=== PATIENT | male | born 1930 | race Caucasian/White ===

== ENCOUNTER → 2018-01-08 | Outpatient (CLI) | payer MEDICARE, BC ==
--- NOTE | 2018-01-09 16:03 | MR ---
EXAMINATION TYPE: MR brain wo con DATE OF EXAM: 01/08/2018 COMPARISON: Correlation acoustic MRI 04/10/2013 HISTORY: 87-year-old male orthostatic tremor, Dizziness TECHNIQUE: Multiplanar, multisequence images of the brain and brainstem were acquired without IV con trast. Diffusion weighted imaging is performed. FINDINGS: No evidence for acute infarction, hemorrhage, mass, mass effect, midline shift, herniation, effacemen t of basal cisterns, or extra-axial fluid collection. There is mild hydrocephalus with moderate generalized supratentorial volume loss. Major intracranial flow voids are intact. Dominant left vertebral artery T2/FLAIR weighted sequences show prominent perivascular spaces in the bilateral basal ganglia and mod erate scattered burden of white white matter foci in the periventricular and deep white matter region s of both cerebral hemispheres that show some interval progression from 2012. Midline structures demonstrate normal morphology. The craniocervical junction is normal. Moderate lobulated mucosal thickening floors of the maxillary sinuses and moderate mucosal thickening in the ethmoid air cells. Mild mucosal thickening left frontal sinus. Globes are intact. IMPRESSION: 1. Moderate generalized atrophy. Mild ventriculomegaly likely secondary to ex vacuo enlargement, che lar to 2012. 2. There is moderate scattered burden of T2 bright white matter change. Findings likely relate to chr onic small vessel ischemic disease, progressed from 2012. 3. No acute intracranial abnormality seen. 4. 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
== END | disposition home or self-care (01) ==
LOC: RADMRIMAIN 12:43
PROVIDERS: ATTEND Internal Medicine
DX: G31.9 Degenerative disease of nervous system, unspecified (principal); R93.0 Abnormal findings on diagnostic imaging of skull and head, not elsewhere classified; G25.2 Other specified forms of tremor
CPT/HCPCS: 70551

== ENCOUNTER 2018-05-14 16:37 | Inpatient (IN) | payer MEDICARE, BC ==
--- NOTE | 2018-05-14 17:01 | ED ---
Chest Pain HPI - General Chief Complaint: Chest Pain Stated Complaint: Chest pain Time Seen by Provider: 05/14/18 16:46 Source: patient, RN notes reviewed Mode of arrival: ambulatory Limitations: no limitations - History of Present Illness Initial Comments: This 88-year-old male who is here with complaints of intermittent left-sided chest pain. 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 No fevers chills nausea vomiting sweats cough or phlegm production no other symptoms or modifying factors other than he has been working out in a swimming pool recently. MD Complaint: chest pain - Related Data Home Medications Medication Instructions Recorded Confirmed Aspirin EC [Ecotrin Low Dose] 81 mg PO HS 05/14/18 05/14/18 Brinzolamide [Azopt 1% Ophth Susp] 1 drop BOTH EYES DAILY 05/14/18 05/14/18 Mesalamine [Asacol Hd] 800 mg PO BID 05/14/18 05/14/18 Vit C/E/Zn/Coppr/Lutein/Zeaxan 1 cap PO BID 05/14/18 05/14/18 [Preservision Areds 2 Softgel] Vitamin D3(Unknown Dose) 1 tab PO HS 05/14/18 05/14/18 Vitamin E(Unknown Dose) 1 cap PO HS 05/14/18 05/14/18 Allergies Allergy/AdvReac Type Severity Reaction Status Date / Time Sulfa (Sulfonamide Allergy Rash/Hives Verified 05/14/18 17:02 Antibiotics) Review of Systems ROS Statement: Those systems with pertinent positive or pertinent negative responses have been documented in the HPI. ROS Other: All systems not noted in ROS Statement are negative. EKG Findings - EKG Results: EKG: interpreted by ERMD, sinus rhythm (Sinus rhythm with first-degree block rate was 65. Interval 250 QRS 92 QT since QTC 34/399 evidence of left exodeviation occasional PAC) Past Medical History Past Medical History: No Reported History History of Any Multi-Drug Resistant Organisms: None Reported Past Surgical History: Cholecystectomy Past Psychological History: No Psychological Hx Reported Smoking Status: Former smoker Past Alcohol Use History: None Reported Past Drug Use History: None Reported General Exam - General Exam Comments Initial Comments: This is a well-developed well-nourished awake alert oriented times 3 male Limitations: no limitations General appearance: alert, in no apparent distress Head exam: Present: atraumatic, normocephalic, normal inspection Eye exam: Present: normal appearance, PERRL, EOMI. Absent: scleral icterus, conjunctival injection, periorbital swelling ENT exam: Present: normal exam, mucous membranes moist Neck exam: Present: normal inspection. Absent: tenderness, meningismus, lymphadenopathy Respiratory exam: Present: normal lung sounds bilaterally. Absent: respiratory distress, wheezes, rales, rhonchi, stridor Cardiovascular Exam: Present: regular rate, normal rhythm, normal heart sounds. Absent: systolic murmur, diastolic murmur, rubs, gallop, clicks GI/Abdominal exam: Present: soft, normal bowel sounds. Absent: distended, tenderness, guarding, rebound, rigid Extremities exam: Present: normal inspection, full ROM, normal capillary refill. Absent: tenderness, pedal edema, joint swelling, calf tenderness Back exam: Present: normal inspection Neurological exam: Present: alert, oriented X3, CN II-XII intact Psychiatric exam: Present: normal affect, normal mood Skin exam: Present: warm, dry, intact, normal color. Absent: rash Course Vital Signs 05/14/18 05/14/18 05/14/18 16:45 17:31 17:32 Temperature 98.2 F 97.9 F Pulse Rate 64 64 Pulse Rate [ 64 [employer] ] Respiratory 18 18 Rate Blood Pressure 144/77 165/79 O2 Sat by Pulse 97 98 Oximetry - Reevaluation(s) Reevaluation #1: 05/14/18 18:45 Reevaluation patient reveals no recurrence of pain. Chest Pain MDM - MDM Review the x-ray is unremarkable. I did discuss findings the patient several family members or present patient is pain-free at this time he will be admitted for evaluation by cardiology at [facility] discuss case Dr. Garcia who is covering for Dr. Rodriguez Disposition Clinical Impression: Chest pain, Unstable angina pectoris Disposition: ADMITTED IP TO THIS [facility] Condition: Stable Referrals: Levon Rodriguez MD [Primary Care Provider] - 1-2 days
[2018-05-14 17:13] LABS: Basophils % (A) 0 %; Eosinophils # (A) 0.5 k/uL (0-0.7); Eosinophils % (A) 7 %; HCT 38.7 % (39.0-53.0); HGB 13.2 gm/dL (13.0-17.5); Lymphocytes # (A) 1.6 k/uL (1.0-4.8); Lymphocytes % (A) 22 %; MCH 32.5 pg (25.0-35.0); MCHC 34.1 g/dL (31.0-37.0); MCV 95.5 fL (80.0-100.0); Mean Platelet Volume 6.8; Monocytes # (A) 0.5 k/uL (0-1.0); Monocytes % (A) 7 %; Neutrophils # (A) 4.4 k/uL (1.3-7.7); Neutrophils % (A) 62 %; Platelet Count 173 k/uL (150-450); RBC 4.06 m/uL (4.30-5.90); RDW 13.3 % (11.5-15.5); WBC 7.2 k/uL (3.8-10.6)
[2018-05-14 17:23] LABS: Albumin 4.1 g/dL (3.5-5.0); Magnesium 2.2 mg/dL (1.6-2.3); Potassium 4.3 mmol/L (3.5-5.1); Total Bilirubin 0.4 mg/dL (0.2-1.3); Total Protein 6.9 g/dL (6.3-8.2)
--- NOTE | 2018-05-14 17:47 | XR ---
EXAMINATION: XR chest 2V DATE AND TIME: 05/14/2018 5:16 PM CLINICAL INDICATION: Chest Pain TECHNIQUE: PA and lateral COMPARISON: 01/27/2014 FINDINGS: The lungs are clear. The pleural spaces are negative. The cardiac silhouette is mildly enlarged, unchanged. Thoracic aorta is tortuous, unchanged. The skeletal structures and soft tissues are negative for acute findings. IMPRESSION: NO ACUTE PROCESS.
[2018-05-14 17:48] LABS: Creatine Kinase MB 3.1 ng/mL (0.0-2.4); Troponin I 0.014 ng/mL (0.000-0.034)
[2018-05-14 17:53] LABS: D-Dimer 0.57 mg/L FEU (<0.60); INR 1.2 (<1.2); Prothrombin Time 11.6 sec (9.0-12.0)
[2018-05-14] MEDS ORDERED: HEPARIN SODIUM,PORCINE 5,000 UNIT/ML 1 ML VIAL IV ONE (18:46)
[2018-05-14] MEDS ORDERED: NITROGLYCERIN SL TABS 0.4 MG TAB SUBLINGUAL PRN (18:46)
[2018-05-14] MEDS ORDERED: ASPIRIN 81 MG PO STA (18:46)
[2018-05-14] MEDS ORDERED: HEPARIN SOD,PORK IN 0.45% NACL 25,000 UNIT in 0.45% NACL 1 500ML.BAG IV SCH (19:00)
[2018-05-14] MEDS ORDERED: FUROSEMIDE 10 MG/ML 2 ML VIAL IV SCH (20:30)
[2018-05-14] MEDS ORDERED: VITAMIN D3 PO SCH (21:00)
[2018-05-14] MEDS ORDERED: VITAMIN E PO SCH (21:00)
[2018-05-14] MEDS ORDERED: ASPIRIN 81 MG PO SCH (21:00)
[2018-05-14] MEDS ORDERED: HEPARIN SODIUM,PORCINE 5,000 UNIT/ML 1 ML VIAL IV PRN (21:29)
[2018-05-14] MEDS: BALSALAZIDE DISODIUM 750 MG CAPSULE PO SCH (21:44)
[2018-05-14] MEDS: VIT A,C & E-LUTEIN-MINERALS 1 EACH TAB PO SCH (21:44)
--- NOTE | 2018-05-14 21:44 | HP ---
HISTORY AND PHYSICAL DATE OF SERVICE: 05/14/[address] Rodriguez and admitted to the hospital through the emergency room. CHIEF COMPLAINT: Tightness of the chest, recurrent and worsened after he fell today that was on the left- sided. He did not feel any heartburn or any association with the chest pain except goes to the neck. HISTORY OF PRESENT ILLNESS: Mr. Guillaume Lay is 88 years old. The PCP Dr. Rodriguez, the attending. The patient is 88 years old white male, , and he has been with that is still working and he has experienced chest discomfort in the form of tightness within the last 2 weeks and pressure-like and goes to upper neck. No radiation to the right or left arm and with no radiation to the back. It is a pressure. It is not associated with sharp pain. He had denied any nausea or vomiting. Denied any palpitation, felt just tightness. It comes always at the evening time of the day and otherwise he was feeling right and after he had repeatedly these symptoms, he decided to come today because he was afraid that he may have had a heart attack. PAST MEDICAL HISTORY: His past medical history is associated with his bowel could be inflammatory and was treated with the Asacol or the mesalamine. Otherwise, he was on his aspirin and eyedrops and vitamin D. On the family history, he has 3 children, 1 son and 2 daughters. The daughter was with him. He had history in the past of a bleeding ulcer and that was treated and resolved, that is 50 years ago and he had a laparoscopic cholecystectomy. He has a family history of brother older than him 89 and he has no problem. His mother had cancer, of age of 64. Father of age of 58 with stroke and hypertension. HE HAS ALLERGY TO SULFA. He quit smoking 60 years ago. He smoked only for 4 years, less than a pack per day. He is non alcohol intake but former smoker as well as mentioned. REVIEWING OF THE SYSTEMS: Neuropsychiatry was negative. Cardiovascular only the feeling tightness of the chest. Pulmonary: He does not have cough or expectoration. No hemoptysis, hematemesis or melena or hematochezia and GI is no heartburn. No GERD and no dyspepsia. No melena or hematochezia or hematemesis. : No dysuria or hematuria and musculoskeletal was normal and he is still working and he is ambulatory. PHYSICAL EXAMINATION: The patient is conscious, alert, oriented, and his vital signs indicating that on admission and in the hospital, his temperature is 97.4 orally and pulse 62, respiratory rate 16, blood pressure 166/80 with a mean 108. His pulse ox was 99. HEENT: The head was normocephalic, atraumatic. The pupil was equal, reactive. Conjunctivae was pink. Sclerae was nonicteric. Oropharynx was negative. Natural teeth. Uvula midline. Neck was supple. No JVD. No thyromegaly. No lymphadenopathy. Trachea midline. The chest was to auscultation and percussion. Questionable lower bases rales and otherwise no problem. He is not short of breath. The heart PMI in the 5th intercostal space outside midclavicular line with the underlying systolic murmur on the apex radiated to the base of the heart on the aortic area with the underlying mitral stenosis. The abdomen is soft, nontender, positive bowel sounds. Obese and no palpable masses. Extremities: He had 1+ on the ankle and the dorsum of the feet and also the shaft, 1 to 2+ edema. However, he did not recognize that until examined. He has also onychomycosis of the toenail and also superficial varicosities of the ankle. LABORATORY DATA: The current laboratories has been present. He has a white count of 7.2 with hemoglobin 13.2 and hematocrit 38.7. His platelet count is 173 and his protime and INR was normal and D-dimer was also normal as well as a PTT. His chemistry is sodium 138, potassium 4.3, and his BUN is 23 and creatinine 1.26 with the estimated glomerular filtration rate for non- 51. With the underlying probably chronic kidney disease stage 3. His liver enzymes normal. Magnesium is 2.2 and his troponin was 0.014 and protein 6.9, albumin 4.1. The last serum lipase was normal 106. ASSESSMENT: 1. Chest pain. 2. Rule out unstable angina with recurrence. 3. Edema of the lower extremities. 4. History of aortic stenosis and the last echocardiogram was done in 04/06/2015 and at that time showed that he had ejection fraction 60-65 with a normal ventricular systolic function, but he has aortic valve is trileaflet and aortic stenosis as well and he had mitral regurg as well. With this finding and this changes, the patient on observation status. Consultation with cardiology Dr. Dior and for further treatment troponin as well as echocardiogram was ordered and monitoring the patient with telemetry as well. His EKG at the time of the admission did not indicate sinus rhythm with first-degree AV block and left axis deviation and a premature atrial complex. No ST-segment elevation or depression, and the troponin was normal and with the current symptoms, the patient on heparin protocol is admitted on observation status until seen by the Cardiology and meanwhile, echocardiogram will be ordered for tomorrow and also restarting Lasix 20 mg IV push once daily. MMODL / IJN: [id number] /
[2018-05-15 00:28] LABS: Creatine Kinase 118 U/L (55-170)
[2018-05-15 00:42] LABS: Creatine Kinase MB 2.6 ng/mL (0.0-2.4); Troponin I <0.012 ng/mL (0.000-0.034)
[2018-05-15 05:36] LABS: Basophils % (A) 1 %; Eosinophils # (A) 0.4 k/uL (0-0.7); Eosinophils % (A) 6 %; HCT 37.9 % (39.0-53.0); HGB 12.4 gm/dL (13.0-17.5); Lymphocytes # (A) 1.5 k/uL (1.0-4.8); Lymphocytes % (A) 22 %; MCH 31.8 pg (25.0-35.0); MCHC 32.6 g/dL (31.0-37.0); MCV 97.7 fL (80.0-100.0); Mean Platelet Volume 6.4; Monocytes # (A) 0.6 k/uL (0-1.0); Monocytes % (A) 8 %; Neutrophils % (A) 61 %; Platelet Count 150 k/uL (150-450); RBC 3.89 m/uL (4.30-5.90); RDW 13.3 % (11.5-15.5); WBC 6.6 k/uL (3.8-10.6)
[2018-05-15 06:06] LABS: Creatine Kinase 104 U/L (55-170)
[2018-05-15 06:18] LABS: Calcium 8.8 mg/dL (8.4-10.2)
[2018-05-15 06:19] LABS: Creatine Kinase MB 2.4 ng/mL (0.0-2.4); Troponin I <0.012 ng/mL (0.000-0.034)
[2018-05-15] MEDS ORDERED: ASPIRIN 325 MG TAB PO SCH (09:00)
[2018-05-15] MEDS ORDERED: REGADENOSON 0.4 MG/5 ML SYRINGE IV ONE (09:31)
[2018-05-15] MEDS ORDERED: CAFFEINE CITRATE 60 MG/3 ML VIAL IV PRN (09:31)
--- NOTE | 2018-05-15 09:55 | P.CRDCN ---
History of Present Illness History of present illness: Mr. Lay is a pleasant 88-year-old male past medical history significant for gastroesophageal reflux disease. He denies history of coronary artery disease and has followed with a advertising analyst, Dr. Harrington out of [facility] in the past. He states he retired last year and hasn't seen anyone else since. We have been asked to see him in consultation for chest pain. He states for the last few weeks has been feeling a discomfort in the anterior chest. Described as a pressure heavy sensation with no radiation to the arm, back, neck or jaw. The discomfort starts in the evening and feels better when he presses on his chest with both hands. Denies associated shortness of breath, dizziness, palpitations, nausea, vomiting or diaphoresis. The pain is present when he goes to sleep and gone when he wakes up. No specific aggravating factor other than the fact that it only comes at night. He states he is quite active, exercises regularly and swims as well. He denies ever having this discomfort with exercise or exertion. EKG reveals first degree AV block with no acute ST or T-wave abnormalities. Chest xray negative for an acute cardiopulmonary process. Laboratory data reviewed, laboratory data reviewed, hemoglobin 12.4, platelets 150, d-dimer 0.57, sodium 139, potassium 4.0, creatinine 1.26, cardiac enzymes negative 3, LDL 113, and he proBNP 377. He takes no daily cardiac medications. Most recent echocardiogram obtained 2014 revealed preserved left ventricular systolic function with ejection fraction 60-65% aortic stenosis with a mean gradient across the valve of 8.72 mmHg. Review of Systems At the time of my exam: CONSTITUTIONAL: Denies fever. Denies chills. EYES: Denies blurred vision. Denies vision changes. Denies eye pain. EARS, NOSE, MOUTH & THROAT: Denies headache. Denies sore throat. Denies ear pain. CARDIOVASCULAR: Denies chest pain. Denies shortness of breath. Denies orthopnea. Denies PND. Denies palpitations. RESPIRATORY: Denies cough. GASTROINTESTINAL: Denies abdominal pain. Denies diarrhea. Denies constipation. Denies nausea. Denies vomiting. MUSCULOSKELETAL: Denies myalgias. INTEGUMENTARY: Denies pruitis. Denies rash. NEUROLOGIC: Denies numbness. Denies tingling. Denies weakness. PSYCHIATRIC: Denies anxiety. Denies depression. ENDOCRINE: Denies fatigue. Denies weight change. Denies polydipsia. Denies polyurina. GENITOURINARY: Denies burning, hematuria or urgency with micturation. HEMATOLOGIC: Denies history of anemia. Denies bleeding. 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 pt stated he uses eye drops to prevent glaucoma.pt stated he had an pne vaccine 3 or 4 years ago,bid writer unable to verify date at time of this admit. History of Any Multi-Drug Resistant Organisms: None Reported Past Surgical History: Cholecystectomy Additional Past Surgical History / Comment(s): laser eye tx and injections rt eye. colonoscopy, past injections amanda rotator cuffs Past Anesthesia/Blood Transfusion Reactions: No Reported Reaction Smoking Status: Former smoker - Past Family History Father Family Medical History: CVA/TIA Mother Family Medical History: Cancer Additional Family Medical History / Comment(s): liver cancer Medications and Allergies Home Medications Medication Instructions Recorded Confirmed Type Aspirin EC [Ecotrin Low Dose] 81 mg PO HS 05/14/18 05/14/18 History Brinzolamide [Azopt 1% Ophth Susp] 1 drop BOTH EYES DAILY 05/14/18 05/14/18 History Mesalamine [Asacol Hd] 800 mg PO BID 05/14/18 05/14/18 History Vit C/E/Zn/Coppr/Lutein/Zeaxan 1 cap PO BID 05/14/18 05/14/18 History [Preservision Areds 2 Softgel] Vitamin D3(Unknown Dose) 1 tab PO HS 05/14/18 05/14/18 History Vitamin E(Unknown Dose) 1 cap PO HS 05/14/18 05/14/18 History Allergies Allergy/AdvReac Type Severity Reaction Status Date / Time Sulfa (Sulfonamide Allergy Rash/Hives Verified 05/14/18 20:54 Antibiotics) Physical Exam Vitals: Vital Signs Temp Pulse Pulse Pulse Resp BP BP 05/15/18 03:58 98.5 F 67 16 132/71 09/26/18 03:23 16 05/14/18 23:34 16 05/14/18 23:26 97.9 F 63 16 119/67 05/14/18 21:33 16 05/14/18 19:41 97.4 F L 62 16 166/80 05/14/18 19:03 97.7 F 58 L 18 141/75 05/14/18 17:32 64 05/14/18 17:31 97.9 F 64 18 165/79 05/14/18 16:45 98.2 F 64 18 144/77 Pulse Ox 05/15/18 03:58 96 05/15/18 03:23 05/14/18 23:34 05/14/18 23:26 98 05/14/18 21:33 05/14/18 19:41 99 05/14/18 19:03 99 05/14/18 17:32 05/14/18 17:31 98 05/14/18 16:45 97 Intake and Output 05/14/18 05/15/18 05/15/18 22:59 06:59 14:59 Intake Total 40 284.073 Balance 40 284.073 Intake: IV 40 180 Heparin Sod,Pork in 0.45% 40 180 NaCl 25,000 unit In 0.45 % NaCl 1 500ml.bag @ 10 UNITS/KG/HR 19.95 mls/hr IV .Q24H JORDYN Rx#: [id number] Intake, IV Titration 104.073 Amount Heparin Sod,Pork in 0.45% 104.073 NaCl 25,000 unit In 0.45 % NaCl 1 500ml.bag @ 10 UNITS/KG/HR 19.95 mls/hr IV .Q24H JORDYN Rx#: [id number] Other: Voiding Method Toilet Toilet # Voids 5 Weight 99.79 kg Blood pressure 149/79 heart rate 74 afebrile maintaining oxygen saturation on room air GENERAL: This is a 88-year-old male in no apparent distress at the time of my examination. Obese. HEENT: Head is atraumatic, normocephalic. Pupils are equal, round. Sclerae anicteric. Conjunctivae are clear. Mucous membranes of the mouth are moist. Neck is supple. There is no jugular venous distention. No carotid bruit is heard. LUNGS: Clear to auscultation no wheezes, rales or rhonchi. No chest wall tenderness is noted on palpation or with deep breathing. HEART: Regular rate and rhythm with systolic ejection murmur at the base, no rubs or gallops. S1 and S2 heard. ABDOMEN: Soft, nontender. Bowel sounds are heard. No organomegaly noted. EXTREMITIES: No evidence of peripheral pretibial pitting edema and no calf tenderness noted. VASCULAR: Radial and dorsalis pedis pulses palpated, no evidence of clubbing. NEUROLOGIC: Patient is awake, alert and oriented x3. Results 05/15/18 05:16 05/15/18 05:16 Cardiac Enzymes 05/14/18 05/14/18 05/14/18 Range/Units 17:00 17:00 23:58 AST 23 (17-59) U/L CK-MB (CK-2) 3.1 H 2.6 H (0.0-2.4) ng/mL Troponin I 0.014 <0.012 (0.000-0.034) ng/mL 05/15/18 Range/Units 05:16 AST (17-59) U/L CK-MB (CK-2) 2.4 (0.0-2.4) ng/mL Troponin I <0.012 (0.000-0.034) ng/mL Coagulation 05/14/18 05/14/18 05/15/18 Range/Units 17:00 23:58 05:16 PT 11.6 (9.0-12.0) sec APTT 25.0 46.7 H 49.7 H (22.0-30.0) sec Lipids 05/15/18 Range/Units 05:16 Triglycerides 65 (<150) mg/dL Cholesterol 184 (<200) mg/dL HDL Cholesterol 58 (40-60) mg/dL CBC 05/14/18 05/15/18 Range/Units 17:00 05:16 WBC 7.2 6.6 (3.8-10.6) k/uL RBC 4.06 L 3.89 L (4.30-5.90) m/uL Hgb 13.2 12.4 L (13.0-17.5) gm/dL Hct 38.7 L 37.9 L (39.0-53.0) % Plt Count 173 150 (150-450) k/uL Comprehensive Metabolic Panel 05/14/18 05/15/18 Range/Units 17:00 05:16 Sodium 138 139 (137-145) mmol/L Potassium 4.3 4.0 (3.5-5.1) mmol/L Chloride 103 105 (98-107) mmol/L Carbon Dioxide 26 27 (22-30) mmol/L BUN 23 H 23 H (9-20) mg/dL Creatinine 1.26 H 1.26 H (0.66-1.25) mg/dL Glucose 92 100 H (74-99) mg/dL Calcium 9.0 8.8 (8.4-10.2) mg/dL AST 23 (17-59) U/L ALT 18 L (21-72) U/L Alkaline Phosphatase 40 (38-126) U/L Total Protein 6.9 (6.3-8.2) g/dL Albumin 4.1 (3.5-5.0) g/dL Current Medications Generic Name Dose Route Start Last Admin Trade Name Milind PRN Reason Stop Dose Admin Aspirin 81 mg 05/14/18 21:00 05/14/18 21:25 Aspirin PO Not Given HS JORDYN Balsalazide 2,250 mg 05/14/18 21:00 05/14/18 21:44 Colazal PO 2,250 mg BID JORDYN Administration Dorzolamide HCl 1 drops 05/15/18 09:00 Trusopt BOTH EYES DAILY JORDYN Furosemide 20 mg 05/14/18 20:30 05/14/18 21:43 Lasix IV 20 mg DAILY JORDYN Administration Heparin Sodium (Porcine) 0 unit 05/14/18 21:29 Heparin IV PER PROTOCOL PRN Low PTT Protocol Heparin Sodium/Sodium Chloride 500 mls @ 19.95 mls/hr 05/14/18 19:00 00:19 25,000 unit/ Sodium Chloride IV 12 units/kg/hr .Q24H JORDYN 23.94 mls/hr Titration Protocol 10 UNITS/KG/HR Multivitamins/Minerals 1 each 05/14/18 21:00 05/14/18 21:44 Ivite PO 1 each BID JORDYN Administration Nitroglycerin 0.4 mg 05/14/18 18:46 Nitrostat SUBLINGUAL Q5M PRN Chest Pain Intake and Output 09/05/15/18 05/15/18 22:59 06:59 14:59 Intake Total 40 284.073 Balance 40 284.073 Intake: IV 40 180 Heparin Sod,Pork in 0.45% 40 180 NaCl 25,000 unit In 0.45 % NaCl 1 500ml.bag @ 10 UNITS/KG/HR 19.95 mls/hr IV .Q24H JORDYN Rx#: [id number] Intake, IV Titration 104.073 Amount Heparin Sod,Pork in 0.45% 104.073 NaCl 25,000 unit In 0.45 % NaCl 1 500ml.bag @ 10 UNITS/KG/HR 19.95 mls/hr IV .Q24H JORDYN Rx#: [id number] Other: Voiding Method Toilet Toilet # Voids 5 Weight 99.79 kg 05/15/18 05:16 05/15/18 05:16 Assessment and Plan Assessment: ASSESSMENT Chest pain, atypical. An acute coronary event has been ruled out with no EKG evidence of ischemia and negative cardiac enzymes. Aortic stenosis Acute kidney injury, creatinine 1.26 Dyslipidemia PLAN Obtain 2-D echocardiogram and Doppler study to assess cardiac structure and function. Perform Lexiscan stress test to assess for reversible cardiac ischemia. No evidence of overt heart failure. Normal and he proBNP, clinically no evidence of fluid overload. Discontinue IV Lasix If Lexiscan stress test is normal he is stable from a cardiac perspective, if abnormal will consider coronary angiography. Thank you kindly for this consultation. Nurse Practitioner note has been reviewed, I agree with a documented findings and plan of care. Patient was seen and examined.
--- NOTE | 2018-05-15 11:48 | P.STRESS ---
- Stress Test Note Stress Test Results/Findings: Exam Performed: NM stress lexiscan cardiolite Exam Date: 05/15/18 Reason for Exam: Chest Pain Height: 5 ft 8 in Weight: 99.79 kg Protocol: Ruth Scan Stage: na Duration of Exercise: na Resting Heart Rate: 58 Resting Blood Pressure: 144/72 Maximum Achieved Heart Rate: 82 Maximum Achieved Blood Pressure: 144/72 85% PMHR: na 100% PMHR: na METS: na Technologist Comment: Stress Test Results/Findings: This is a 88-year-old gentleman who was admitted to the hospital with chest pain. Patient has history of CVA. Stress data: Baseline EKG showed a sinus rhythm. Blood pressure test is 140/72 with pulse rate of 58. A standard dose of Lexiscan was infused. EKGs taken during or after infusion did not reveal any changes of ischemia. Final impression: #1. Negative Lexiscan stress test #2. Report of the nuclear images to begin by the radiologist
--- NOTE | 2018-05-15 11:52 | ECHOF ---
Referral Reason:Aortic stenosis, tightness of the chest, left vent MEASUREMENTS -------- HEIGHT: 172.7 cm WEIGHT: 99.8 kg BP: RVIDd: 2.9 cm (< 3.3) IVSd: 1.1 cm (0.6 - 1.1) LVIDd: 4.3 cm (3.9 - 5.3) LVPWd: 1.1 cm (0.6 - 1.1) IVSs: 1.4 cm LVIDs: 2.5 cm LVPWs: 1.5 cm LAESV Index (A-L): 20.98 ml/m Ao Diam: 3.3 cm (2.0 - 3.7) AV Cusp: 1.5 cm (1.5 - 2.6) LA Diam: 4.3 cm (2.7 - 3.8) EPSS: 0.8 cm MV E Andres: 0.84 m/s MV DecT: 252 ms MV A Andres: 1.07 m/s MV E/A Ratio: 0.78 AV maxP.28 mmHg AV meanP.21 mmHg AR PHT: 916 ms RAP: 5.00 mmHg RVSP: 12.42 mmHg MV EF SLOPE: 44.02 mm/s (70 - 150) MV EXCURSION: 1.33 cm (> 18.000) FINDINGS -------- Sinus rhythm. This was a technically difficult study with suboptimal views. The left ventricular size is normal. There is borderline concentric left ventricular hypertrophy. Overall left ventricular systolic function is normal with, an EF between 55 - 60 %. The right ventricle is normal in size and function. Normal LA size by volume 22+/-6 ml/m2. The right atrium is normal in size. 3 ml of Lumason was utilized for enhancement of images. Aortic valve is trileaflet and is mildly thickened. Trace to mild aortic regurgitation. There is mild aortic stenosis present. Peak/mean gradient across the Aortic Valve is 19.28mmHg / 11.21mmHg. Mild mitral annular calcification present. There is trace to mild mitral regurgitation. Trace tricuspid regurgitation present. Right ventricular systolic pressure is normal at < 35 mmHg. There is borderline pulmonary hypertension. The pulmonic valve was not well visualized. The aortic root size is normal. IVC Not well visulized. There is no pericardial effusion. CONCLUSIONS -------- 1. Sinus rhythm. 2. This was a technically difficult study with suboptimal views. 3. The left ventricular size is normal. 4. There is borderline concentric left ventricular hypertrophy. 5. Overall left ventricular systolic function is normal with, an EF between 55 - 60 %. 6. Normal LA size by volume 22+/-6 ml/m2. 7. 3 ml of Lumason was utilized for enhancement of images. 8. Aortic valve is trileaflet and is mildly thickened. 9. Trace to mild aortic regurgitation. 10. There is mild aortic stenosis present. 11. Peak/mean gradient across the Aortic Valve is 19.28mmHg / 11.21mmHg. 12. Mild mitral annular calcification present. 13. There is trace to mild mitral regurgitation. 14. Trace tricuspid regurgitation present. 15. Right ventricular systolic pressure is normal at < 35 mmHg. 16. There is borderline pulmonary hypertension. 17. The pulmonic valve was not well visualized. 18. The aortic root size is normal. 19. IVC Not well visulized. 20. There is no pericardial effusion. CHEF SAUCIER: Nacho Diaz RDCS
[2018-05-15] MEDS: BALSALAZIDE DISODIUM 750 MG CAPSULE PO SCH ×2 (12:00→20:07)
[2018-05-15] MEDS: VIT A,C & E-LUTEIN-MINERALS 1 EACH TAB PO SCH ×2 (12:00→20:07)
[2018-05-15] MEDS: DORZOLAMIDE HCL 2% DROPS 10 ML BTL BOTH EYES SCH (12:00)
--- NOTE | 2018-05-15 12:32 | NM ---
EXAMINATION TYPE: NM stress lexiscan cardiolite DATE OF EXAM: 05/15/2018 COMPARISON: NONE HISTORY: Chest pain TECHNIQUE: After the intravenous administration of 9.44 mCi Tc 99m Sestamibi - Cardiolite resting SP ECT images acquired 55 minutes post injection. The patient received 0.4mg Lexiscan, 26.1 mCi Tc 99m Sestamibi - Stress images obtained [address] injection FINDINGS: Review of stress and rest SPECT images demonstrates some decreased radio pharmaceutical uptake along the inferolateral left ventricle on stress as compared to rest images. Gated analysis shows suspecte d paradoxical wall motion, decreased wall motion in the apex with an estimated left ventricular eject ion fraction of 58 %. IMPRESSION: Findings suggest pharmacologically induced left ventricular myocardial ischemia as described. Conside r echocardiographic correlation for wall motion
[2018-05-15] MEDS: ACETAMINOPHEN TAB 325 MG TAB PO PRN (13:03)
[2018-05-15] MEDS ORDERED: ALPRAZolam 0.5 MG TAB PO PRN (13:47)
[2018-05-15] MEDS ORDERED: SODIUM CHLORIDE 0.9% 1,000 ML in EMPTY BAG 1 BAG IV ONE (13:47)
[2018-05-15] MEDS ORDERED: ALPRAZolam 0.25 MG TAB PO PRN (13:47)
--- NOTE | 2018-05-15 13:47 | P.PN ---
Progress Note - Text Lexiscan stress test suggestive of pharmacologically induced left ventricular myocardial ischemia along the inferolateral left ventricle on stress compared to rest. These findings have been discussed in detail with patient and his family. We recommend proceeding with cardiac catheterization. I have discussed the risks, benefits and alternative therapies for the above-mentioned procedure and for both sedation/analgesia as well as necessary blood product administration, if indicated, as they pertain to this patient. The patient has indicated understanding and acceptance of the risks and procedures discussed. Questions have been answered appropriately. The procedure has been tentatively scheduled for tomorrow morning at 10:[address] Mckenna. The patient would like to discuss with his family and do some research on his own this evening prior to consenting. We will follow up in the morning. Nothing by mouth after midnight if he decides to proceed with procedure.
--- NOTE | 2018-05-15 16:18 | PN ---
PROGRESS NOTE DATA: 88 year old white male. 5 foot 8 inches height, weight 99.79 kg. BSA 2.13 m2, BMI 33.5 kg/m squared. ALLERGY: SULFONAMIDE ANTIBIOTIC AND SULFA IN GENERAL CAUSES RASH AND HIVES. Patient is seen today and evaluated and subsequently Cardiology seen the patient and the patient underwent Lexiscan and found that in the portion of the Lexiscan that he has abnormalities was reported by the Lexiscan and was indicating that the patient has decreased radiopharmaceutical uptake along the temporal lateral of the left ventricle on the stress as compared with the resting image. He has also paradoxical wall motion and decreased wall motion in the apex with the estimated left ventricular ejection fraction is 58, which has been less than mentioned in the echocardiogram and that is suggestive of stress induced left ventricular lead myocardial ischemia and for this purpose, they contacted the cardiology Dr. Mckenna who will be planning for cardiac catheterization tomorrow. Meanwhile, I did review his laboratory today, found that his mild elevation of the cholesterol with the underlying hyperlipidemia and with the presence of the lipid profile indicating that in spite of the total cholesterol is 184. His LDL 113 and HDL 58. His CK was mildly elevated, today is normalized to 0.4. On initial exam was 3.1, but the troponin was normal. He was placed on heparin infusion and apparently he will be continuing that until he had the cardiac cath. He will be staying still in the observation unit until cardiac cath and subsequent depend on the results, will be admitted to the case monitor floor 6 East or he will be going home subsequently. PHYSICAL EXAMINATION: Today, patient is conscious, alert, oriented x3. He has HEENT was negative. Neck was supple and his chest was clear to auscultation and percussion. No wheezes, no rhonchi. Heart was regular sinus rhythm. No evidence of arrhythmia. His blood pressure was 142/74, his heart rate was ranging between 74-59, and his temperature 97.5, his respiratory rate was 18 and he is a nonsmoker. His oxygen saturation 97%. His extremities, still has evidence of edema of the lower extremities and he has also underlying aortic stenosis as mentioned by the echo. His echocardiogram which was done as well and by Dr. Mckenna was indicating sinus rhythm and he has the left ventricular systolic function was about 55-60%. He has aortic valve is trileaflet and he had mild aortic regurgitation and mild aortic stenosis by the ultrasound. His gradient across the aortic valve was 19.28 mmHg, peak is 19.28 mmHg and a gradient 11.21. He has mild mitral regurgitation and tricuspid regurgitation trace and he has a borderline pulmonary hypertension. However, we will we be obtaining the results subsequently with the cardiac catheterization and he will be clarify the issue of the recurrent tightness of the chest. He was seen today by Omar Araujo, the PA for the Cardiology and she discussed with the patient and he will have underlying further evaluation with cardiac cath. The patient currently stable and his laboratory indicating no progression. However, the chest pain that is intermittent will be cleared by the investigation which will be done tomorrow. PCP is Dr. Rodriguez. GRACIELA / ANGELIA: [id number] /
[2018-05-15] MEDS: ATORVASTATIN 20 MG TAB PO SCH (20:07)
[2018-05-16] MEDS: ATORVASTATIN 20 MG TAB PO SCH (06:42)
[2018-05-16] MEDS: VIT A,C & E-LUTEIN-MINERALS 1 EACH TAB PO SCH ×2 (06:42→20:33)
[2018-05-16] MEDS: BALSALAZIDE DISODIUM 750 MG CAPSULE PO SCH ×2 (06:42→20:33)
[2018-05-16] MEDS: DORZOLAMIDE HCL 2% DROPS 10 ML BTL BOTH EYES SCH (06:43)
[2018-05-16] MEDS ORDERED: ASPIRIN 325 MG TAB PO ONE (09:00)
[2018-05-16] MEDS ORDERED: IV FLUID CONTINUATION 1,000 ML IV ONE (10:39)
[2018-05-16] MEDS ORDERED: LIDOCAINE 1% INJ 10MG/ML (20 ML MDV) ONE (10:40)
[2018-05-16] MEDS ORDERED: MIDAZOLAM 2 MG/2 ML VIAL ONE (10:40)
[2018-05-16] MEDS ORDERED: fentaNYL (PF) 50 MCG/ML 2 ML AMP ONE (10:41)
[2018-05-16] MEDS ORDERED: VERAPAMIL 2.5 MG/ML 2 ML AMP ONE (11:00)
[2018-05-16] MEDS: LIDOCAINE 1% INJ 10MG/ML (20 ML MDV) SQ ONE ×2 (11:02→11:20)
[2018-05-16] MEDS ORDERED: fentaNYL (PF) 50 MCG/ML 2 ML AMP IV ONE (11:03)
--- NOTE | 2018-05-16 11:49 | P.CARDCATH ---
Date of Procedure: 05/16/18 Preoperative Diagnosis: Unstable angina and positive stress test Postoperative Diagnosis: The same Procedure(s) Performed: Left heart catheterization with selective coronary arteriography and without left ventriculography Description of Procedure: HISTORY: This is a 88-year-old gentleman who was admitted to the hospital with recurrent chest pains which are slightly atypical and similar mostly at rest. Patient had a nuclear stress test which was reported as showing reversible ischemia involving the inferolateral segments. Patient is advised to have a cardiac catheterization for definitive diagnosis. CONSENT:I have discussed the risks, benefits and alternative therapies for the above-mentioned procedure and for both sedation/analgesia as well as necessary blood product administration, if indicated, as they pertain to this patient. The patient has indicated understanding and acceptance of the risks and procedures discussed. PROCEDURE: Patient was brought to the lab in a fasting state. Patient was given some IV sedation. The right groin is infiltrated with lidocaine and right femoral artery was entered using Seldinger technique. A 6-Argentine catheter was left in place and selective coronary arteriography was performed. Patient tolerated the procedure well. Femoral angiogram was performed . No immediate complications were noted . Patient is found to have significant lesion in the PDA branch of the circumflex. Waiting to be evaluated by Elizabeth for possible stent placement Conscious Sedation: Versed 0mg Fentanyl 25 g Duration 19minutes HEMODYNAMICS: The aortic pressure is about 140/60. Left ankle end-diastolic pressure is 5-10. There was no gradient across the aortic valve SELECTIVE CORONARY ARTERIOGRAPHY: LEFT MAIN: Normal length and free of any significant occlusive disease THE LEFT ANTERIOR DESCENDING CORONARY ARTERY:. This is a good caliber vessel giving rise to septal and diagonal branches. The LAD is free of any significant occlusive disease THE LEFT CIRCUMFLEX AND IS CORONARY ARTERY:. This is a dominant vessel giving rise to PDA. The distal circumflex has about 70% lesion prior to the PDA THE RIGHT CORONARY ARTERY: Small nondominant vessel free of occlusive disease LEFT VENTRICULOGRAPHY:. Not performed FINAL IMPRESSION:. Significant lesion involving the distal circumflex and PDA PLAN:. Possible stent placement to be done by Dr. Johnson PROGNOSIS: Fair
[2018-05-16] MEDS ORDERED: IOPAMIDOL-370 125ML BTL INJ ONE (12:21)
[2018-05-16] MEDS ORDERED: BIVALIRUDIN BOLUS 250 MG/50 ML IV ONE (12:23)
[2018-05-16] MEDS ORDERED: BIVALIRUDIN 250 MG in SODIUM CHLORIDE 0.9% 50 ML IV ONE (12:24)
[2018-05-16] MEDS ORDERED: CLOPIDOGREL 75 MG TAB PO ONE (12:25)
[2018-05-16] MEDS ORDERED: CLOPIDOGREL 75 MG TAB ONE (12:26)
[2018-05-16] MEDS ORDERED: ATROPINE SULFATE 0.1 MG/ML 10ML SYRINGE IV PRN (12:39)
[2018-05-16] MEDS ORDERED: ZOLPIDEM 5 MG TAB PO PRN (12:39)
[2018-05-16] MEDS ORDERED: MAG HYDROX/AL HYDROX/SIMETH 30 ML CUP PO PRN (12:39)
[2018-05-16] MEDS ORDERED: NITROGLYCERIN SL TABS 0.4 MG TAB SUBLINGUAL PRN (12:39)
[2018-05-16] MEDS ORDERED: RX INFO: IV CONTRAST WAS GIVEN 1 EACH MISC MISCELLANE PRN (12:39)
[2018-05-16] MEDS ORDERED: SODIUM CHLORIDE 0.9% 1,000 ML IV SCH (12:45)
[2018-05-16] MEDS ORDERED: IOPAMIDOL-300 100ML BTL INJ ONE (12:50)
[2018-05-16] MEDS ORDERED: HEPARIN SOD,PORK IN 0.45% NACL 25,000 UNIT in 0.45% NACL 1 500ML.BAG IV ONE (14:23)
--- NOTE | 2018-05-16 16:04 | PTCA ---
PERCUTANEOUSTRANS CORORONARY ANGIOGRAPHY PERCUTANEOUS CORONARY INTERVENTION: DATE OF PROCEDURE: 05/15/2018 PERFORMING PHYSICIAN: Servando Arango MD PROCEDURE PERFORMED: Successful stenting of the distal left circumflex using 3.0 x 15 mm Xience YVES with good angiographic results. INDICATION: This is a pleasant 88-year-old gentleman who presented to the hospital with chest discomfort. Patient underwent a stress test and that showed reversible ischemia involving the inferolateral segment of the left ventricle. He underwent heart catheterization by Dr. Mckenna and was found to have severe disease involving the distal left circumflex. COMPLICATION: None. LEVEL OF SEDATION: Moderate with sedation length of 16 minutes. PROCEDURE DESCRIPTION: After obtaining an informed consent, the patient was brought to the cardiac research lab assistant. The right common femoral artery I repeat procedure description please refer to diagnostic heart catheterization was performed by Dr. Mckenna. Anticoagulation was initiated using Angiomax. Subsequently I did engage the left main using a whisper wire. I did initially engage the left main JL4 guide. A whisper wire was used to wire the left circumflex. I did direct stenting of the lesion using 3.0 x 15 mm Xience YVES where the stent was positioned under fluoroscopy guidance and deployed its stent under 10 atmospheres for 20 seconds with the following angiogram showing good angiographic results. The procedure was completed without any complication. POSTPROCEDURE MANAGEMENT: 1. Dual anti-platelet therapy. 2. Risk factors modifications. 3. Follow up with the patient. MMODL / IJN: [id number] /
--- NOTE | 2018-05-16 16:40 | LTR ---
May 14, 2018 To: Dr. Levon Rodriguez Re: Guillaume Lay (34) Dear Dr. Rodriguez, Mr. Guillaume Lay underwent successful stenting of the left circumflex with good angiographic results and without any complication. Thank you for allowing us to participate in his care and please do not hesitate to call if you have any question or concern. Sincerely, Servando Arango MD MMLAURAL / SYDNEYN: [id number] /
[2018-05-16] MEDS: ACETAMINOPHEN TAB 325 MG TAB PO PRN (17:42)
--- NOTE | 2018-05-16 19:00 | PN ---
PROGRESS NOTE DATE OF SERVICE: 05/16/2018. DATA: FULL CODE. ALLERGIES: SULFA, SULFONAMIDE. HISTORY: The patient was admitted initially for observation because of his recurrent chest pain. At that time his laboratory and enzymes were stable. However, he had a stress test and the stress test was indicative of abnormalities and subsequently Cardiology did cardiac catheterization. Subsequently the patient was kept for today and this morning the patient was taken to the cardiac cath suite and he underwent cardiac catheterization by Dr. Mckenna followed by Dr. Arango. They did open the circumflex with the stents and he had one stent, left heart catheterization and selective coronary arteriography without left ventriculography. This 88-year-old white gentleman was admitted to the hospital because of recurrent chest pain, as mentioned above. It was slightly atypical and the patient had a nuclear stress test which was reported showing reversible ischemia involving the inferolateral segment. The patient was advised at that time cardiac catheterization and subsequently was taken for cardiac cath and the conclusion indicated that left main was normal length and free of any significant occlusive disease and left anterior descending artery was good caliber as well, arising from the septal and diagonal branch. The LAD is free. Left circumflex is a dominant vessel giving rise to PDA. The distal circumflex has about a 70% lesion prior to the PDA. The right coronary artery is small, non-dominant and free of occlusion. The conclusion was that he has significant lesion involving the distal circumflex and the PDA. At that time, Dr. Arango, Interventional Cardiology, came and did the stent placement. No evidence of complication. They tried first to do the cardiac cath from his right upper extremity but failed and subsequently did it from the groin area. The patient otherwise is in stable general condition. He has no chest pain. However, he has to be on bedrest for 6 to 8 hours for the bleeding and the . His vital signs currently are normal with the pulse rate 76, respiratory rate 16 and blood pressure 121/81 with a mean 94. He is on room air. HEENT was negative. Neck was supple. Chest was clear to auscultation and percussion. Heart was regular sinus rhythm. The abdomen was soft. Positive bowel sounds. EXTREMITIES: No edema. Positive pulses. The patient is currently in stable general condition with the underlying coronary artery disease, status post cardiac cath and stent placement in the right circumflex. PLAN: Observation and monitoring. Tomorrow probably discharge. MMODL / IJN: [id number] /
[2018-05-16] MEDS: METOPROLOL TARTRATE 25 MG TAB PO SCH (20:24)
[2018-05-16] MEDS ORDERED: ATORVASTATIN 80 MG TAB PO SCH (21:00)
[2018-05-17] MEDS: BALSALAZIDE DISODIUM 750 MG CAPSULE PO SCH (08:59)
[2018-05-17] MEDS: VIT A,C & E-LUTEIN-MINERALS 1 EACH TAB PO SCH (08:59)
[2018-05-17] MEDS: METOPROLOL TARTRATE 25 MG TAB PO SCH (08:59)
[2018-05-17] MEDS: DORZOLAMIDE HCL 2% DROPS 10 ML BTL BOTH EYES SCH (09:04)
[2018-05-17 10:39] VITALS: BMI 33.4
[2018-05-17] MEDS ORDERED: CLOPIDOGREL 75 MG TAB PO SCH (12:00)
[2018-05-17 12:09] VITALS: RESP 18
[2018-05-17 12:16] VITALS: BP 133/81; PULSE 55; TEMP 98
--- NOTE | 2018-05-17 12:41 | P.PN ---
Subjective Progress Note Date: 05/17/18 Mr. Lay is a pleasant 88-year-old male past medical history significant for gastroesophageal reflux disease. He denies history of coronary artery disease and has followed with a mmi teacher, Dr. Harrington out of [facility] in the past. He states he retired last year and hasn't seen anyone else since. He presented to the hospital with symptoms of chest discomfort, was seen in consultation by Dr. Mckenna and recommended to undergo a stress test. Ruth scan stress test was performed, findings suggestive pharmacologically induced left ventricular myocardial ischemia along the inferior lateral wall and for this reason patient was advised to undergo cardiac catheterization. Subsequent to that patient underwent successful stenting of the distal circumflex. Patient was seen and examined this morning, denies any chest pain or difficulty in breathing. EKG from this morning showed a normal sinus rhythm with no change from post-PCI. Blood pressure 132/80 with a heart rate in the 60s, 96% on room air. White blood cell count 6.6, hemoglobin 12.4, platelet count 150. Sodium 139, potassium 4.0, BUN 23, creatinine 1.2. Objective - Vital Signs Vital signs: Vital Signs Temp 98.0 F 05/17/18 12:00 Pulse 55 L 05/17/18 12:00 Resp 18 05/17/18 12:00 BP 133/81 05/17/18 12:00 Pulse Ox 96 05/17/18 12:00 Intake & Output 05/16/18 05/17/18 05/17/18 18:59 06:59 18:59 Intake Total 368.7 960 360 Output Total 850 800 Balance 368.7 110 -440 Weight 99.79 kg 99.79 kg Intake: IV 128.7 Oral 240 960 360 Output: Urine 850 800 Other: Voiding Method Toilet Toilet Toilet # Voids 3 - Exam Blood pressure 149/79 heart rate 74 afebrile maintaining oxygen saturation on room air GENERAL: This is a 88-year-old male in no apparent distress at the time of my examination. Obese. HEENT: Head is atraumatic, normocephalic. Pupils are equal, round. Sclerae anicteric. Conjunctivae are clear. Mucous membranes of the mouth are moist. Neck is supple. There is no jugular venous distention. No carotid bruit is heard. LUNGS: Clear to auscultation no wheezes, rales or rhonchi. No chest wall tenderness is noted on palpation or with deep breathing. HEART: Regular rate and rhythm with systolic ejection murmur at the base, no rubs or gallops. S1 and S2 heard. ABDOMEN: Soft, nontender. Bowel sounds are heard. No organomegaly noted. EXTREMITIES: No evidence of peripheral pretibial pitting edema and no calf tenderness noted. Right radial and right groin or soft, no evidence of any hematoma. VASCULAR: Radial and dorsalis pedis pulses palpated, no evidence of clubbing. NEUROLOGIC: Patient is awake, alert and oriented x3. - Labs CBC & Chem 7: 05/15/18 05:16 05/17/18 05:58 Assessment and Plan Plan: Assessment and plan #1 chest pain, status post angioplasty and stenting of the circumflex artery. #2 aortic stenosis #3 hyperlipidemia Plan Patient may be discharged home today. Follow-up appointment with Dr. Mckenna in the office in one week. Patient will be discharged home on aspirin 81 mg daily, Lipitor 80 mg daily, Plavix 75 mg daily, metoprolol 25 mg by mouth twice a day and sublingual nitroglycerin as needed for chest pain. DNP note has been reviewed, I agree with a documented findings and plan of care. Patient was seen and examined.
--- NOTE | 2018-05-17 15:06 | DS ---
DISCHARGE SUMMARY Age [age] years old white male, . Room #673, bed 1 [facility] and he is a FULL CODE. DATA: He is a FULL CODE. He is 5 foot 8 inches height, his weight 99.79 kg, BSA 2.13 m2, BMI 33.5 kg/m2. He has allergy to SULFONAMIDE ANTIBIOTICS. FINAL DIAGNOSES: 1. Chest pain, repetitive with the unstable angina. 2. Status post stress test and cardiac catheterization with abnormalities of the heart. Status post stent placement in the right circumflex artery, one stent. 3. Possibility of chronic kidney disease stage IIIA. Patient observed after the stent placement and he did well with no abnormality. On discharge, patient is free from any chest pains or palpitation and his currently vital signs indicating temperature 98 and pulse 55-65 and respiratory rate 18, blood pressure 133/81, and mean 98 and room air was 96%. On the examination on discharge, HEENT: Head was normocephalic, atraumatic. Pupils equal, reactive. Oropharynx natural teeth and neck was supple. No JVD. No thyromegaly. No lymphadenopathy. Trachea midline. Chest was clear to auscultation and percussion. Heart was regular sinus rhythm and the PMI in the fifth intercostal space. Normal S1, S2. No gallop. Abdomen was soft. Positive bowel sounds. Extremities, no edema and positive pulses and patient is ambulatory. LABORATORY: Last laboratory was done on 05/15 showed that white count 6.6, hemoglobin 12.4 and hematocrit 37.9. He was on heparin drip until he had the cardiac cath and his chemistry profile indicating that his sodium on May 15, sodium 139, potassium 4, the chloride 105, carbon dioxide is 27 and his anion gap is 7. His BUN was 23 and creatinine 1.26 on 05/15, on 05/17 his creatinine is 1.17 and the estimated glomerular filtration rate for non- 56 with the underlying possibility of chronic kidney disease stage IIIA. His blood sugar is stable and his calcium is normal and alkaline phosphatase 104 and the troponin was normal 0.014, followed by 0.012, followed by 0.012. His beta natriuretic peptide was 377 and his LDL was 113 and HDL 58, a total 184, lipase 106. As patient is stable general condition, he will be discharged home today and continue the current medication, added medication to him. His atorvastatin 80 mg daily. He will be followed by Cardiology, Dr. Mckenna, and he will be followed by Dr. Rodriguez on his return, if any further need for medical attention, they can call me in my office, this is Dr. Regalado dictating the discharge summary. Patient on Clopidogrel 75 mg p.o. daily and he is also on Lopressor 25 mg q. daily and he is also on sublingual nitroglycerin, a prescription was given. MMODL / IJN: [id number] /
[2018-05-17] MEDS ORDERED: ASPIRIN 81 MG PO SCH (21:00)
== END 2018-05-17 15:09 | disposition home or self-care (01) | DRG 247 ==
LOC: EC 16:37 → 3OBS 18:49 → OBSVTOIN 05-15 15:01 → 6SEL 05-16 14:22
PROVIDERS: ADMIT Internal Medicine; ATTEND Internal Medicine
PROC: B211YZZ Fluoroscopy of Multiple Coronary Arteries using Other Contrast (ICD-10-PCS; 2018-05-16)
PROC: 027034Z Dilation of Coronary Artery, One Artery with Drug-eluting Intraluminal Device, Percutaneous Approach (ICD-10-PCS; principal; 2018-05-16 11:00)
PROC: 4A023N7 Measurement of Cardiac Sampling and Pressure, Left Heart, Percutaneous Approach (ICD-10-PCS; 2018-05-16 11:00)
DX: I25.110 Atherosclerotic heart disease of native coronary artery with unstable angina pectoris (principal); N17.9 Acute kidney failure, unspecified; N18.3 Chronic kidney disease, stage 3 (moderate); I69.398 Other sequelae of cerebral infarction; E78.5 Hyperlipidemia, unspecified; H54.61 Unqualified visual loss, right eye, normal vision left eye; I08.0 Rheumatic disorders of both mitral and aortic valves; R40.2362 Coma scale, best motor response, obeys commands, at arrival to emergency department; R40.2142 Coma scale, eyes open, spontaneous, at arrival to emergency department; R40.2252 Coma scale, best verbal response, oriented, at arrival to emergency department; K44.9 Diaphragmatic hernia without obstruction or gangrene; K57.90 Diverticulosis of intestine, part unspecified, without perforation or abscess without bleeding; H93.19 Tinnitus, unspecified ear; I45.6 Pre-excitation syndrome; I44.0 Atrioventricular block, first degree; K21.9 Gastro-esophageal reflux disease without esophagitis; Z79.82 Long term (current) use of aspirin; Z79.899 Other long term (current) drug therapy; Z88.2 Allergy status to sulfonamides; Z90.49 Acquired absence of other specified parts of digestive tract; Z85.828 Personal history of other malignant neoplasm of skin; Z87.891 Personal history of nicotine dependence; Z87.11 Personal history of peptic ulcer disease; Z80.0 Family history of malignant neoplasm of digestive organs; Z82.49 Family history of ischemic heart disease and other diseases of the circulatory system; Z82.3 Family history of stroke; W19.XXXA Unspecified fall, initial encounter
CPT/HCPCS: 36415; 71046; 78452; 80048; 80053; 80061; 82550; 82553; 82565; 83690; 83735; 83880; 84484; 85025; 85379; 85610; 85730; 93005; 93017; 93306; 93458; 96374; 99285; C1874

== ENCOUNTER 2018-08-13 04:36 | Inpatient (IN) | payer MEDICARE, BC ==
[2018-08-13] MEDS ORDERED: SODIUM CHLORIDE 0.9% 1,000 ML IV STA (04:50)
[2018-08-13 05:15] LABS: Basophils % (A) 0 %; Eosinophils # (A) 0.5 k/uL (0-0.7); Eosinophils % (A) 7 %; HCT 38.2 % (39.0-53.0); HGB 12.4 gm/dL (13.0-17.5); Lymphocytes # (A) 1.7 k/uL (1.0-4.8); Lymphocytes % (A) 23 %; MCH 30.9 pg (25.0-35.0); MCHC 32.5 g/dL (31.0-37.0); MCV 95.1 fL (80.0-100.0); Mean Platelet Volume 6.5; Monocytes # (A) 0.4 k/uL (0-1.0); Monocytes % (A) 5 %; Neutrophils # (A) 4.7 k/uL (1.3-7.7); Neutrophils % (A) 63 %; Platelet Count 200 k/uL (150-450); RBC 4.02 m/uL (4.30-5.90); RDW 13.6 % (11.5-15.5); WBC 7.5 k/uL (3.8-10.6)
[2018-08-13 05:27] LABS: Albumin 3.9 g/dL (3.5-5.0); Calcium 8.8 mg/dL (8.4-10.2); Potassium 4.4 mmol/L (3.5-5.1); Total Bilirubin 0.5 mg/dL (0.2-1.3); Total Protein 6.7 g/dL (6.3-8.2)
[2018-08-13 05:32] LABS: Creatine Kinase 71 U/L (55-170)
[2018-08-13 05:45] LABS: Creatine Kinase MB 2.8 ng/mL (0.0-2.4); Troponin I <0.012 ng/mL (0.000-0.034)
--- NOTE | 2018-08-13 05:58 | ED ---
GI Bleed HPI - General Chief complaint: GI Bleed Stated complaint: Male Time Seen by Provider: 08/13/18 04:49 Source: patient Mode of arrival: wheelchair Limitations: no limitations - History of Present Illness Initial comments: Guillaume is a pleasant 88-year-old gentleman past medical history of coronary artery disease for which she received a stent approximately 2 months ago and is now on Plavix. Patient also has a history of colitis and has had diverticula as well as polyps identified on previous colonoscopy so he hasn't had one for a number of years. Patient presents the emergency department today after being woken from his sleep with an urge to have a bowel movement and noted that his stool was bright red blood. Patient reports he's had 3 small volume bowel movements of bright red blood per to coming to the emergency department as well as 1 upon arrival. Patient denies any chest pain, palpitations, shortness of breath or lightheadedness. He's never experienced that he like this in the past though he has closely with gastroenterology in the past. She denies any abdominal pain nausea, vomiting. He reports he was in his usual state of health when he went to bed last night. - Related Data Home Medications Medication Instructions Recorded Confirmed Aspirin EC [Ecotrin Low Dose] 81 mg PO HS 05/14/18 05/14/18 Brinzolamide [Azopt 1% Ophth Susp] 1 drop BOTH EYES DAILY 05/14/18 05/14/18 Mesalamine [Asacol Hd] 800 mg PO BID 05/14/18 05/14/18 Vit C/E/Zn/Coppr/Lutein/Zeaxan 1 cap PO BID 05/14/18 05/14/18 [Preservision Areds 2 Softgel] Vitamin D3(Unknown Dose) 1 tab PO HS 05/14/18 05/14/18 Vitamin E(Unknown Dose) 1 cap PO HS 05/14/18 05/14/18 Previous Rx's Medication Instructions Recorded Atorvastatin [Lipitor] 80 mg PO HS #30 tab 05/17/18 Clopidogrel [Plavix] 75 mg PO DAILY #30 tab 05/17/18 Metoprolol Tartrate [Lopressor] 25 mg PO BID #60 tab 05/17/18 Nitroglycerin Sl Tabs [Nitrostat] 0.4 mg SUBLINGUAL Q5M PRN #25 tab 05/17/18 Allergies Allergy/AdvReac Type Severity Reaction Status Date / Time Sulfa (Sulfonamide Allergy Rash/Hives Verified 05/14/18 20:54 Antibiotics) Review of Systems ROS Statement: Those systems with pertinent positive or pertinent negative responses have been documented in the HPI. ROS Other: All systems not noted in ROS Statement are negative. 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 pt stated he uses eye drops to prevent glaucoma.pt stated he had an pne vaccine 3 or 4 years ago,medical technical writer unable to verify date at time of this admit. History of Any Multi-Drug Resistant Organisms: None Reported Past Surgical History: Cholecystectomy, Heart Catheterization With Stent Additional Past Surgical History / Comment(s): laser eye tx and injections rt eye. colonoscopy, past injections amanda rotator cuffs Past Anesthesia/Blood Transfusion Reactions: No Reported Reaction Past Psychological History: No Psychological Hx Reported Smoking Status: Former smoker - Past Family History Father Family Medical History: CVA/TIA Mother Family Medical History: Cancer Additional Family Medical History / Comment(s): liver cancer General Exam - General Exam Comments Initial Comments: Physical Exam GENERAL: Patient is well-developed and well-nourished. Patient is nontoxic and well- hydrated and is in no distress. HENT: Normocephalic, Atraumatic. EYES: PERRL, EOMI PULMONARY: Unlabored respirations. No audible rales rhonchi or wheezing was noted. CARDIOVASCULAR: There is a regular rate and rhythm without any murmurs gallops or rubs. ABDOMEN: Soft and nontender with normal bowel sounds. SKIN: Skin is clear with no lesions or rashes and otherwise unremarkable. : Rectal exam with bright red blood NEUROLOGIC: Patient is alert and oriented x3. Moving all extremities spontaneously MUSCULOSKELETAL: Normal extremities with adequate strength and full range of motion. No lower extremity swelling or edema. No calf tenderness. PSYCHIATRIC: Normal psychiatric evaluation. Limitations: no limitations Limitations: no limitations Course Vital Signs 08/13/18 04:41 Temperature 97.9 F Pulse Rate 76 Respiratory 16 Rate Blood Pressure 129/77 O2 Sat by Pulse 98 Oximetry Medical Decision Making - Medical Decision Making She was seen and evaluated history is obtained from the patient daughter bedside as well as review of medical record Patient is hemodynamically stable with bright red blood per rectum Labs ordered Review of labs revealed a hemoglobin remains 12.4 which is unchanged from previous, patient did have one bright red stool in the emergency department which I was able to evaluate. I have a high suspicion for lower GI bleeding. Patient care was discussed with patient's primary care physician Dr. Rodriguez at 6: 10 AM, Dr. Rodriguez accepts the admission for bright red blood per rectum. - Lab Data Result diagrams: 08/13/18 05:01 08/13/18 05:01 Lab Results 08/13/18 08/13/18 08/13/18 Range/Units 05:01 05:01 05:01 WBC 7.5 (3.8-10.6) k/uL RBC 4.02 L (4.30-5.90) m/uL Hgb 12.4 L (13.0-17.5) gm/dL Hct 38.2 L (39.0-53.0) % MCV 95.1 (80.0-100.0) fL MCH 30.9 (25.0-35.0) pg MCHC 32.5 (31.0-37.0) g/dL RDW 13.6 (11.5-15.5) % Plt Count 200 (150-450) k/uL Neutrophils % 63 % Lymphocytes % 23 % Monocytes % 5 % Eosinophils % 7 % Basophils % 0 % Neutrophils # 4.7 (1.3-7.7) k/uL Lymphocytes # 1.7 (1.0-4.8) k/uL Monocytes # 0.4 (0-1.0) k/uL Eosinophils # 0.5 (0-0.7) k/uL Basophils # 0.0 (0-0.2) k/uL APTT (22.0-30.0) sec Sodium 141 (137-145) mmol/L Potassium 4.4 (3.5-5.1) mmol/L Chloride 109 H (98-107) mmol/L Carbon Dioxide 23 (22-30) mmol/L Anion Gap 9 mmol/L BUN 21 H (9-20) mg/dL Creatinine 1.07 (0.66-1.25) mg/dL Est GFR (CKD-EPI)AfAm 73 (>60 ml/min/1.73 sqM) Est GFR (CKD-EPI)NonAf 63 (>60 ml/min/1.73 sqM) Glucose 110 H (74-99) mg/dL Plasma Lactic Acid Beto (0.7-2.0) mmol/L Calcium 8.8 (8.4-10.2) mg/dL Total Bilirubin 0.5 (0.2-1.3) mg/dL AST 25 (17-59) U/L ALT 29 (21-72) U/L Alkaline Phosphatase 39 (38-126) U/L Total Creatine Kinase 71 (55-170) U/L CK-MB (CK-2) 2.8 H (0.0-2.4) ng/mL CK-MB (CK-2) Rel Index 3.9 Troponin I <0.012 (0.000-0.034) ng/mL Total Protein 6.7 (6.3-8.2) g/dL Albumin 3.9 (3.5-5.0) g/dL Blood Type Blood Type Recheck Antibody Screen Spec Expiration Date 08/13/18 08/13/18 08/13/18 Range/Units 05:01 05:01 05:01 WBC (3.8-10.6) k/uL RBC (4.30-5.90) m/uL Hgb (13.0-17.5) gm/dL Hct (39.0-53.0) % MCV (80.0-100.0) fL MCH (25.0-35.0) pg MCHC (31.0-37.0) g/dL RDW (11.5-15.5) % Plt Count (150-450) k/uL Neutrophils % % Lymphocytes % % Monocytes % % Eosinophils % % Basophils % % Neutrophils # (1.3-7.7) k/uL Lymphocytes # (1.0-4.8) k/uL Monocytes # (0-1.0) k/uL Eosinophils # (0-0.7) k/uL Basophils # (0-0.2) k/uL APTT 24.1 (22.0-30.0) sec Sodium (137-145) mmol/L Potassium (3.5-5.1) mmol/L Chloride (98-107) mmol/L Carbon Dioxide (22-30) mmol/L Anion Gap mmol/L BUN (9-20) mg/dL Creatinine (0.66-1.25) mg/dL Est GFR (CKD-EPI)AfAm (>60 ml/min/1.73 sqM) Est GFR (CKD-EPI)NonAf (>60 ml/min/1.73 sqM) Glucose (74-99) mg/dL Plasma Lactic Acid Beto 1.8 (0.7-2.0) mmol/L Calcium (8.4-10.2) mg/dL Total Bilirubin (0.2-1.3) mg/dL AST (17-59) U/L ALT (21-72) U/L Alkaline Phosphatase (38-126) U/L Total Creatine Kinase (55-170) U/L CK-MB (CK-2) (0.0-2.4) ng/mL CK-MB (CK-2) Rel Index Troponin I (0.000-0.034) ng/mL Total Protein (6.3-8.2) g/dL Albumin (3.5-5.0) g/dL Blood Type A Negative Blood Type Recheck CABO Indicated Antibody Screen NEGATIVE Spec Expiration Date 08/16/20182300 Disposition Clinical Impression: BRBPR (bright red blood per rectum) Disposition: ADMITTED IP TO THIS [facility] Referrals: Levon Rodriguez MD [Primary Care Provider] - 1-2 days
[2018-08-13] MEDS ORDERED: NALOXONE 0.4 MG/ML 1 ML VIAL IV PRN (06:05)
[2018-08-13] MEDS ORDERED: PANTOPRAZOLE 40 MG TABLET PO PRN (08:38)
[2018-08-13] MEDS: BALSALAZIDE DISODIUM 750 MG CAPSULE PO SCH ×3 (08:53→21:07)
[2018-08-13] MEDS: METOPROLOL TARTRATE 25 MG TAB PO SCH (08:54)
[2018-08-13] MEDS: SODIUM CHLORIDE 0.9% 1,000 ML IV SCH ×2 (08:54→15:29)
[2018-08-13] MEDS ORDERED: METOPROLOL TARTRATE 25 MG TAB PO SCH (09:00)
[2018-08-13 12:55] LABS: Basophils % (A) 0 %; Eosinophils # (A) 0.2 k/uL (0-0.7); Eosinophils % (A) 2 %; HCT 35.1 % (39.0-53.0); HGB 11.3 gm/dL (13.0-17.5); Lymphocytes # (A) 1.4 k/uL (1.0-4.8); Lymphocytes % (A) 17 %; MCH 31.4 pg (25.0-35.0); MCHC 32.2 g/dL (31.0-37.0); MCV 97.4 fL (80.0-100.0); Mean Platelet Volume 6.8; Monocytes # (A) 0.3 k/uL (0-1.0); Monocytes % (A) 4 %; Neutrophils # (A) 5.9 k/uL (1.3-7.7); Neutrophils % (A) 75 %; Platelet Count 189 k/uL (150-450); RBC 3.61 m/uL (4.30-5.90); RDW 13.7 % (11.5-15.5); WBC 7.9 k/uL (3.8-10.6)
--- NOTE | 2018-08-13 14:51 | CONS ---
CONSULTATION DATE OF SERVICE: 08/13/2018. REQUESTING PHYSICIAN: Dr. Rodriguez. REASON FOR CONSULTATION: Acute lower gastrointestinal bleed. HISTORY OF PRESENT ILLNESS: The patient is an 88-year-old pleasant white male who came into the emergency room early this morning when he woke up from sleep at 2:00 a.m. with an urgency for bowel movement and noticed bright red blood per rectum. He had 3 other small episodes at home and hence came to the emergency room. While in the hospital he had a large bloody bowel movement an hour ago. He denies any abdominal pain reports no nausea, vomiting. Never had these symptoms in the past. He feels a little bit lightheaded for the last few hours. His initial hemoglobin was 12.2 g/dL. He had a cardiac cath with stent placement 2 months ago and since then has been on aspirin and Plavix. He was diagnosed with peptic ulcer disease approximately 50 years ago. Currently denies any NSAID use. PAST MEDICAL HISTORY: Significant for coronary artery disease, gastroesophageal reflux disease, hypertension, hypercholesteremia. MEDICATIONS: At home include aspirin, Prilosec, Flomax, vitamin D3, aspirin, folic acid, Lipitor, Plavix, Asacol, and Lopressor. ALLERGIES: SULFA. SOCIAL HISTORY: No smoking. No alcohol use. FAMILY HISTORY: Unremarkable. REVIEW OF SYSTEM: CARDIOPULMONARY: No chest pain or shortness of breath. GENITOURINARY: No dysuria or hematuria. MUSCULOSKELETAL: Unremarkable. SKIN: Unremarkable. ENDOCRINE: Unremarkable. PSYCHIATRY: Unremarkable. NEUROLOGY: Unremarkable. ENT/VISION: Unremarkable. CONSTITUTIONAL: No recent weight loss. No fever, chills, night sweats. PAST SURGICAL HISTORY: ICU surgery, right shoulder surgery, skin cancer, colonoscopy about 5 or [address] Garcia. PHYSICAL EXAMINATION: He appears comfortable. No apparent distress. VITAL SIGNS: Stable. Blood pressure 139/77, pulse is 76, temperature 97.9 HEENT examination unremarkable. Conjunctivae pink. Sclerae anicteric. Oral cavity no lesions. Neck no JVD. No lymph node enlargement. Chest clear to auscultation. Heart regular rate and rhythm. Abdomen soft. Bowel sounds are positive. No organomegaly. Extremities, no pedal edema. Skin no rashes. Neuro, alert and oriented x3. No focal deficits. LABS: From the time of admission to the hospital, WBC 7.5, hemoglobin 12.4, platelets are normal. Basic metabolic panel is within normal limits. BUN 21, creatinine 1.07. IMPRESSION: Acute lower GI bleed, possibly diverticular in etiology. The patient had 4 episodes of bright red blood per rectum that started around 2 a.m. this morning. Hemoglobin at the time of admission hospital was 12.2 g/dL. The patient recently had a cardiac cath with stent placement 2 months ago and since then has been on aspirin and Plavix which is currently on hold. His last colonoscopy by Dr. Garcia was approximately 5 or 6 years ago and according to the patient he was noted to have diverticulosis. RECOMMENDATIONS: Clear liquid diet. CBC every 6 hours. Discussed with the patient as well as his family at the bedside regarding possibility of a diverticular bleed. At this time we will continue conservative management with no plans on any endoscopic intervention. However, if he continues to have active ongoing bleeding, we will consider further workup. For now, we will monitor his CBC every 6 hours and transfuse if needed. Thank you for this consultation. MMODL / IJN: [id number] /
[2018-08-13] MEDS: ATORVASTATIN 80 MG TAB PO SCH (21:08)
[2018-08-13] MEDS: ASPIRIN 81 MG PO SCH (21:08)
--- NOTE | 2018-08-13 21:45 | HP ---
HISTORY AND PHYSICAL ATTENDING PHYSICIAN: Dr. Blanka Rodriguez CHIEF COMPLAINT: Rectal bleeding. HISTORY OF PRESENT ILLNESS: This is an 88-year-old gentleman who was admitted to the hospital with significant blood in his stool. He says about 2:30 in the night he had the urge to have a bowel movement. He went into the toilet and noticed that he had nothing but blood. The patient, in view of this, called his daughter who brought him to the hospital. The patient did complain of some dizziness but denied any chest pain, shortness of breath, or palpitations. The patient has been on aspirin and Plavix since April of 2018 since he had a cardiac stent placed in the RCA. The patient had 3 more bowel movements after coming to the emergency room. His hemoglobin is normal. Vital signs stable. The patient is admitted to the hospital in view of this bleeding. He denies any abdominal pain. PAST MEDICAL HISTORY: Significant for coronary artery disease for which he had a stent placed in the RCA/PDA back in April of this year. History of hypertension. No history of any lung disease, liver disease, kidney disease, ulcers, TB, hepatitis. No history of any rheumatic fever, myocardial infarction, CVA. Does have a previous history of colitis which has been well controlled with medications. Last colonoscopy he had was back in 2007. He does have history of colonic diverticula. No history of malignancy. PAST SURGICAL HISTORY: Significant for cholecystectomy, right cataract surgery. PERSONAL HISTORY: Never smoker. Alcohol, occasional drink. ALLERGIES: To SULFA. MEDICATIONS: Medications at present include aspirin 81 mg daily, Plavix 75 mg daily, omeprazole 20 mg once daily b.i.d. p.r.n., eye vitamins, magnesium, Slow-Mag 64 mg daily, vitamin D daily, folic acid 0.8 mg daily, vitamin B12 2000 mcg daily, Lipitor 20 mg daily, metoprolol tartrate 25 mg daily, Asacol 800 mg b.i.d. and Plavix 75 mg daily. SOCIAL HISTORY: Patient is His ex- is now though. 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 FAMILY MEDICAL HISTORY: Father at the age of 58. He had a history of CVA. He also had a history of diabetes mellitus, hypertension. Mother at the age of 64, she had carcinoma of the gallbladder. The brother 88 years of age, history of peripheral neuritis, diabetes mellitus and previous history of CVA. The patient has 1 son in good health. He has 2 daughters in fairly good health. REVIEW OF SYSTEMS: NEURO: Denies any headaches. Some dizziness when he is up. No double vision, blurred vision. No symptoms of TIA, syncope, seizures. PSYCH: No anxiety, depression. CARDIAC: No chest pain, angina, palpitations. RESPIRATORY: No shortness of breath, cough, hemoptysis. GI: No nausea, vomiting, abdominal pain, diarrhea. Present complaint of rectal bleeding. : No symptoms of dysuria or hematuria, some hesitancy. CONSTITUTIONAL: No fever or chills. HEMATOLOGICAL: Present bleeding. No bleeding disorder. SKIN: No rash. HEENT: Adequate vision now. PHYSICAL EXAMINATION: Pleasant gentleman at present. No distress. Vital signs revealed temperature 97.7, pulse 79, respirations 18, blood pressure 104/62, pulse ox 96% on room air. HEENT: Normocephalic. Neck supple. Pupils reactive. Conjunctivae pink. Sclerae are nonicteric. Oral cavity is dry. Ears reveal no drainage. NECK: No JVD. No carotid bruits. No thyromegaly. CHEST EXAMINATION: Clear to auscultation and percussion. CARDIAC: Normal S1, S2 with no gallop. Systolic murmur 2/6 right second intercostal space, nonradiating. ABDOMEN: Soft. No palpable masses. Bowel sounds normal. No organomegaly. No abdominal bruits. EXTREMITIES: Reveal no edema. Good pulses both upper and lower extremities. NEUROLOGIC: Awake, alert, oriented x3 with well-coordinated movements. Rectal examination reveals normal sphincter tone. Prostate 2+ enlarged. The patient has no stool but bloody mucousy findings. ASSESSMENT: 1. Lower gastrointestinal bleeding, etiology possible diverticular bleed, possible colitis. 2. History of coronary artery disease with recent stent. 3. Hypertension on medical therapy. 4. Obesity. 5. Benign prostatic hypertrophy. LABORATORY ASSESSMENT: Revealed hemoglobin 12.4, white count 7.5. INR is normal. BUN, creatinine normal range. Glucose random 110. Liver enzymes normal. PLAN: Continue the patient on clear liquids, IV hydration, GI consult. Continue aspirin 81 as the patient has had a recent stent. Plavix has been on hold. Prognosis remains guarded. Patient's condition discussed with the patient. Benefits and risks of aspirin use discussed with the patient. MMODL / IJN: [id number] /
[2018-08-14] MEDS: SODIUM CHLORIDE 0.9% 1,000 ML IV SCH ×4 (03:09→18:34)
[2018-08-14 07:17] LABS: Basophils % (A) 0 %; Eosinophils # (A) 0.4 k/uL (0-0.7); Eosinophils % (A) 5 %; HCT 30.6 % (39.0-53.0); HGB 9.9 gm/dL (13.0-17.5); Lymphocytes # (A) 1.5 k/uL (1.0-4.8); Lymphocytes % (A) 21 %; MCH 31.3 pg (25.0-35.0); MCHC 32.2 g/dL (31.0-37.0); MCV 97.3 fL (80.0-100.0); Mean Platelet Volume 6.6; Monocytes # (A) 0.4 k/uL (0-1.0); Monocytes % (A) 6 %; Neutrophils # (A) 4.8 k/uL (1.3-7.7); Neutrophils % (A) 66 %; Platelet Count 157 k/uL (150-450); RBC 3.15 m/uL (4.30-5.90); RDW 13.6 % (11.5-15.5); WBC 7.2 k/uL (3.8-10.6)
[2018-08-14] MEDS: BALSALAZIDE DISODIUM 750 MG CAPSULE PO SCH ×3 (08:31→21:26)
[2018-08-14] MEDS: METOPROLOL TARTRATE 25 MG TAB PO SCH (08:32)
[2018-08-14] MEDS: ASPIRIN 81 MG PO SCH (21:26)
[2018-08-14] MEDS: ATORVASTATIN 80 MG TAB PO SCH (21:26)
--- NOTE | 2018-08-14 21:36 | PN ---
PROGRESS NOTE CHIEF COMPLAINT: Re-evaluation. HISTORY OF PRESENT ILLNESS: This 88-year-old gentleman was admitted to the hospital with rectal bleeding. The patient has not had any further episodes since yesterday. He denies any abdominal pain. He does feel somewhat weak, but no associated dizziness, chest pain, palpitations. The patient continues on aspirin since he had a stent placed 3 months ago. REVIEW OF SYSTEMS: NEURO: Denies any headaches, dizziness. PSYCH: No anxiety. CARDIAC: No chest pain, angina, palpitations. RESPIRATORY: Denies shortness of breath, cough, hemoptysis. GI: No nausea, vomiting, abdominal pain, diarrhea. Bowel movement normal color. : No symptoms of dysuria or hematuria. EXTREMITIES: No pain. CONSTITUTIONAL: No fever or chills. PHYSICAL EXAMINATION: Pleasant gentleman in no distress. Vital signs reveal temperature 97.6, pulse 57, respirations 18. Blood pressure was 117/58, pulse ox 98% on room air. HEENT: Normocephalic. NECK: No JVD. CHEST: Clear to auscultation and percussion. CARDIAC: Normal S1, S2 with no gallops, murmurs. ABDOMEN: Soft. No palpable masses. Bowel sounds normal. No organomegaly. No abdominal bruits. EXTREMITIES: No edema. Neurologically awake, alert, oriented with well-coordinated movements. LABORATORY ASSESSMENT: CBC revealed hemoglobin of 9.9, down from 12.4 at the time of admission. ASSESSMENT: 1. Lower gastrointestinal bleeding, probably diverticular bleed. 2. Anemia secondary to acute blood loss. 3. Coronary artery disease, stable. PLAN: Continue present medical regimen. Patient's condition was discussed with the patient. Prognosis guarded. If the patient continues to remain without bleeding, he will be discharged home tomorrow. Patient's condition was discussed with the patient. Prognosis guarded. MMODL / IJN: [id number] /
[2018-08-15] MEDS: SODIUM CHLORIDE 0.9% 1,000 ML IV SCH ×3 (06:06→17:31)
[2018-08-15 07:40] LABS: HCT 28.2 % (39.0-53.0); HGB 9.3 gm/dL (13.0-17.5); MCH 31.9 pg (25.0-35.0); MCHC 32.8 g/dL (31.0-37.0); Mean Platelet Volume 6.6; Platelet Count 158 k/uL (150-450); RBC 2.91 m/uL (4.30-5.90); RDW 13.6 % (11.5-15.5); WBC 7.9 k/uL (3.8-10.6)
[2018-08-15 07:47] LABS: Calcium 8.3 mg/dL (8.4-10.2); Potassium 4.1 mmol/L (3.5-5.1)
--- NOTE | 2018-08-15 08:15 | P.PN ---
Subjective Progress Note Date: 08/14/18 Principal diagnosis: Blood per rectum Patient seen lying in bed. Denying any abdominal pain. Reports that episodes of blood per rectum have become less frequent with 3 episodes today. Tolerating diet. Objective - Vital Signs Vital signs: Vital Signs Temp 97.5 F L 08/14/18 20:51 Pulse 60 08/14/18 20:51 Resp 18 08/14/18 20:51 BP 148/67 08/14/18 20:51 Pulse Ox 98 08/14/18 20:51 Intake & Output 08/14/18 08/14/18 08/15/18 06:59 18:59 06:59 Intake Total 1400 Output Total 5 Balance 1400 -5 Intake: Intake, IV Titration 800 Amount Sodium Chloride 0.9% 1, 800 000 ml @ 100 mls/hr IV . Q10H JORDYN Rx#:[id number] Oral 600 Output: Urine 5 Other: Voiding Method Toilet Toilet # Voids 1 # Bowel Movements 2 5 - Exam On physical examination, patient appears comfortable in no apparent distress. HEAD: Normocephalic, atraumatic. EYES: No scleral icterus. No conjunctival injection. MOUTH: No lesions, tongue midline. NECK: Trachea midline, no gross abnormalities. CHEST: Clear to auscultation with no wheezing or rhonchi appreciated. HEART: S1 and S2 appreciated. ABDOMEN: Soft, obese. Bowel sounds are positive. No organomegaly. No guarding or rigidity. EXTREMITIES: No pedal edema. SKIN: No rashes, no jaundice. NEUROLOGIC: Alert and oriented. No focal deficits. - Labs CBC & Chem 7: 08/15/18 07:03 08/15/18 07:03 Labs: Abnormal Lab Results - Last 24 Hours (Table) 08/14/18 Range/Units 06:40 RBC 3.15 L (4.30-5.90) m/uL Hgb 9.9 L (13.0-17.5) gm/dL Hct 30.6 L (39.0-53.0) % Assessment and Plan (1) BRBPR (bright red blood per rectum) Narrative/Plan: Patient presenting with complaints of painless bright red blood per rectum. Differential includes diverticular disease, hemorrhoids, colonic AVMs or other etiology. Currently reporting a decrease in the amount of blood passed per rectum. Current Visit: Yes Status: Acute Code(s): K62.5 - HEMORRHAGE OF ANUS AND RECTUM SNOMED Code(s): 99955023 (2) Anemia, blood loss Current Visit: Yes Status: Acute Code(s): D50.0 - IRON DEFICIENCY ANEMIA SECONDARY TO BLOOD LOSS (CHRONIC) SNOMED Code(s): 030253350 Plan: Supportive care Monitor hemoglobin and transfuse as needed Full liquid diet, if patients symptoms continue to improve and hemoglobin remain stable can advance diet Continue conservative management, if patient's symptoms worsen or hemoglobin falls further we'll consider further workup and evaluation Thank you for allowing us to participate in the care of this patient
[2018-08-15] MEDS: BALSALAZIDE DISODIUM 750 MG CAPSULE PO SCH ×3 (09:07→21:46)
[2018-08-15] MEDS: METOPROLOL TARTRATE 25 MG TAB PO SCH (09:08)
[2018-08-15] MEDS: ASPIRIN 81 MG PO SCH (19:59)
[2018-08-15] MEDS: ATORVASTATIN 80 MG TAB PO SCH (19:59)
[2018-08-15] MEDS: DORZOLAMIDE HCL 2% DROPS 10 ML BTL BOTH EYES SCH (19:59)
[2018-08-15] MEDS: TIMOLOL 0.5% OPHTH DROPS 5 ML BTL BOTH EYES SCH (20:00)
[2018-08-15] MEDS: LATANOPROST 0.005% OPHTH DROPS 2.5 ML BTL BOTH EYES SCH (20:00)
--- NOTE | 2018-08-15 22:32 | PN ---
PROGRESS NOTE CHIEF COMPLAINT: Re-evaluation. HISTORY OF PRESENT ILLNESS: This is an 88-year-old gentleman who was admitted to the hospital with some lower GI bleeding. The patient had fresh blood. He is feeling reasonably well. He does feel somewhat weak. His hemoglobin is 9.3, down from 12.4. The patient does feel somewhat weak, but otherwise no other symptoms. REVIEW OF SYSTEMS: NEURO: Denies any headaches, dizziness. PSYCH: No anxiety, depression. CARDIAC: No chest pain, angina, palpitations. RESPIRATORY: No shortness of breath, cough. GI: No nausea, vomiting, abdominal pain, diarrhea. Has had no bowel movement. : No symptoms of dysuria or hematuria. EXTREMITIES: No pain. CONSTITUTIONAL: No fever or chills. PHYSICAL EXAMINATION: Pleasant gentleman, at present in no distress. Vital signs reveal temperature 96.7, pulse 63, respirations 18, blood pressure 115/52, pulse ox of 100% on room air. HEENT: Normocephalic. NECK: No JVD. CHEST: Clear to auscultation and percussion. CARDIAC: Normal S1, S2 with no gallops or murmurs. ABDOMEN: Soft. Bowel sounds active. Rectal examination reveals normal sphincter tone, minimal maroon-colored blood. Extremities reveal no edema. Good pulses, both upper and lower extremities. NEUROLOGIC: Awake, alert, oriented with well-coordinated movements. LABORATORY ASSESSMENT: CBC which reveals hemoglobin 9.3, white count and platelet counts normal. Electrolytes normal. BUN and creatinine normal. ASSESSMENT: 1. Anemia secondary to acute blood loss. 2. Lower gastrointestinal bleeding, probably diverticular bleed. 3. History of colitis. 4. Coronary artery disease with a previous stent. PLAN: The patient is stable. Continue present medical regimen. Patient's condition discussed with the patient. Prognosis guarded. Will recheck CBC in the morning. If it remains stable, will discharge the patient home. Diet is full liquids. The patient was rechecked this evening, doing well. Has not had a bowel movement since morning. Continue present treatment. MMODL / IJN: [id number] /
[2018-08-16] MEDS: SODIUM CHLORIDE 0.9% 1,000 ML IV SCH ×3 (01:35→11:20)
[2018-08-16] MEDS: BALSALAZIDE DISODIUM 750 MG CAPSULE PO SCH ×3 (08:48→23:05)
[2018-08-16] MEDS: METOPROLOL TARTRATE 25 MG TAB PO SCH (08:48)
[2018-08-16] MEDS: DORZOLAMIDE HCL 2% DROPS 10 ML BTL BOTH EYES SCH ×2 (08:49→23:04)
[2018-08-16] MEDS: TIMOLOL 0.5% OPHTH DROPS 5 ML BTL BOTH EYES SCH ×2 (08:49→23:05)
[2018-08-16 09:11] LABS: HCT 25.9 % (39.0-53.0); HGB 8.5 gm/dL (13.0-17.5); MCH 31.6 pg (25.0-35.0); MCHC 32.9 g/dL (31.0-37.0); MCV 96.1 fL (80.0-100.0); Mean Platelet Volume 6.9; Platelet Count 154 k/uL (150-450); RDW 13.7 % (11.5-15.5); WBC 7.5 k/uL (3.8-10.6)
--- NOTE | 2018-08-16 09:21 | P.PN ---
Subjective Progress Note Date: 08/15/18 Principal diagnosis: Blood per rectum Patient seen lying in bed. Denying any abdominal pain. Patient reported a small amounts of bright red blood per rectum this morning, however since then he is seeing no further bleeding. He has tolerated his diet and is anxious to be discharged. Objective - Vital Signs Vital signs: Vital Signs Temp 97.5 F L 08/15/18 21:00 Pulse 66 08/15/18 21:00 Resp 16 08/15/18 21:00 BP 150/72 08/15/18 21:00 Pulse Ox 100 08/15/18 21:00 Intake & Output 08/15/18 08/15/18 08/16/18 06:59 18:59 06:59 Intake Total 590 Balance 590 Intake: Oral 590 Other: Voiding Method Toilet Toilet # Voids 3 3 2 # Bowel Movements 1 - Exam On physical examination, patient appears comfortable in no apparent distress. HEAD: Normocephalic, atraumatic. EYES: No scleral icterus. No conjunctival injection. MOUTH: No lesions, tongue midline. NECK: Trachea midline, no gross abnormalities. CHEST: Clear to auscultation with no wheezing or rhonchi appreciated. HEART: S1 and S2 appreciated. ABDOMEN: Soft, obese. Bowel sounds are positive. No organomegaly. No guarding or rigidity. EXTREMITIES: No pedal edema. SKIN: No rashes, no jaundice. NEUROLOGIC: Alert and oriented. No focal deficits. - Labs CBC & Chem 7: 08/15/18 07:03 08/15/18 07:03 Labs: Abnormal Lab Results - Last 24 Hours (Table) 08/15/18 08/15/18 Range/Units 07:03 07:03 RBC 2.91 L (4.30-5.90) m/uL Hgb 9.3 L (13.0-17.5) gm/dL Hct 28.2 L (39.0-53.0) % Chloride 109 H (98-107) mmol/L Glucose 107 H (74-99) mg/dL Calcium 8.3 L (8.4-10.2) mg/dL Assessment and Plan (1) BRBPR (bright red blood per rectum) Narrative/Plan: Patient presenting with complaints of painless bright red blood per rectum. Differential includes diverticular disease, hemorrhoids, colonic AVMs or other etiology. Currently reporting a decrease in the amount of blood passed per rectum. Current Visit: Yes Status: Acute Code(s): K62.5 - HEMORRHAGE OF ANUS AND RECTUM SNOMED Code(s): 54229820 (2) Anemia, blood loss Current Visit: Yes Status: Acute Code(s): D50.0 - IRON DEFICIENCY ANEMIA SECONDARY TO BLOOD LOSS (CHRONIC) SNOMED Code(s): 121209990 Plan: Supportive care Monitor hemoglobin and transfuse as needed Advance diet as tolerated Continue conservative management, if patient's symptoms worsen or hemoglobin falls further we'll consider further workup and evaluation Okay for discharge if no further bleeding tomorrow and hemoglobin is stable Thank you for allowing us to participate in the care of this patient
--- NOTE | 2018-08-16 21:24 | PN ---
PROGRESS NOTE ATTENDING PHYSICIAN: Dr. Blanka Rodriguez. CHIEF COMPLAINT: Re-evaluation. HISTORY OF PRESENT ILLNESS: This 88-year-old was admitted to the hospital for lower GI bleeding. The patient felt to have a probably diverticular bleed. He has no abdominal pain. No other associated symptoms of diarrhea. At the time of evaluation this morning, the patient had not had a bowel movement. Earlier last evening, he had a small bowel movement with some altered blood. He is continued on full liquids. REVIEW OF SYSTEMS: Neuro: Denies any headaches or dizziness. Psych: No anxiety. Cardiac: No chest pain, angina, palpitation. Respiratory: No shortness of breath, cough, hemoptysis. GI no nausea, vomiting, abdominal pain, diarrhea. Present blood in the stool. : No symptoms of dysuria or hematuria. Extremities: No pain. Constitutional: No fever or chills. PHYSICAL EXAMINATION: Pleasant gentleman in no distress. Vital signs reveals: Temperature 97.6, pulse 83, respirations 16, blood pressure 127/55, pulse ox 100 percent on room air. HEENT: Normocephalic. Neck no JVD. CHEST: Clear to auscultation and percussion. Cardiac: Normal S1, S2 with no gallops, murmurs, rubs. ABDOMEN: Soft. Bowel sounds present. Extremities: Reveals no edema. No tenderness. NEUROLOGIC: Awake, alert, oriented with well-coordinated movements. LABORATORY ASSESSMENT: CBC which revealed hemoglobin of down to 8.5. He had presented with a hemoglobin 12.4. ASSESSMENT: 1. Lower gastrointestinal bleeding, probable diverticular bleed. 2. Anemia secondary to acute blood loss. 3. Coronary artery disease with a stent about 3 months ago. PLAN: Continue present medical regimen. Patient's condition discussed with the patient. Prognosis remains guarded. Recheck CBC in the morning. MMODL / IJN: [id number] /
[2018-08-16] MEDS: LATANOPROST 0.005% OPHTH DROPS 2.5 ML BTL BOTH EYES SCH (23:04)
[2018-08-16] MEDS: ASPIRIN 81 MG PO SCH (23:04)
[2018-08-16] MEDS: ATORVASTATIN 80 MG TAB PO SCH (23:05)
[2018-08-17 03:32] LABS: HCT 25.7 % (39.0-53.0); HGB 8.5 gm/dL (13.0-17.5); MCH 32.1 pg (25.0-35.0); MCHC 33.2 g/dL (31.0-37.0); MCV 96.7 fL (80.0-100.0); Mean Platelet Volume 7.3; Platelet Count 160 k/uL (150-450); RBC 2.66 m/uL (4.30-5.90); RDW 13.7 % (11.5-15.5); WBC 8.9 k/uL (3.8-10.6)
[2018-08-17] MEDS: SODIUM CHLORIDE 0.9% 1,000 ML IV SCH (04:56)
[2018-08-17 08:09] LABS: Glucose,Whole Blood 173 mg/dL (75-99)
[2018-08-17 08:12] LABS: Basophils % (A) 0 %; Eosinophils # (A) 0.3 k/uL (0-0.7); Eosinophils % (A) 3 %; HCT 23.1 % (39.0-53.0); HGB 7.7 gm/dL (13.0-17.5); Lymphocytes # (A) 1.7 k/uL (1.0-4.8); Lymphocytes % (A) 18 %; MCH 32.2 pg (25.0-35.0); MCHC 33.2 g/dL (31.0-37.0); Monocytes # (A) 0.5 k/uL (0-1.0); Monocytes % (A) 5 %; Neutrophils # (A) 6.6 k/uL (1.3-7.7); Neutrophils % (A) 71 %; Platelet Count 184 k/uL (150-450); RBC 2.38 m/uL (4.30-5.90); RDW 13.9 % (11.5-15.5); WBC 9.3 k/uL (3.8-10.6)
[2018-08-17 08:32] LABS: Glucose,Whole Blood 155 mg/dL (75-99)
[2018-08-17] MEDS ORDERED: SODIUM CHLORIDE 0.9% 1,000 ML IV ONE (08:33)
[2018-08-17] MEDS: PANTOPRAZOLE 40 MG/10 ML VIAL IVP SCH (08:38)
[2018-08-17] MEDS ORDERED: NALOXONE 0.4 MG/ML 1 ML VIAL IV PRN (08:46)
--- NOTE | 2018-08-17 09:33 | P.CNPUL ---
History of Present Illness Consult date: 08/17/18 Requesting physician: Levon Rodriguez Reason for consult: other Chief complaint: Acute GI bleed, hypovolemic shock History of present illness: This is a 88-year-old white male patient of Dr. Rodriguez who came into the hospital on 08/13/2018 for evaluation of bright red blood per rectum. Patient has past medical history of coronary artery disease with recent stenting in April, and is currently on a combination of aspirin and Plavix. He has a remote history of bleeding gastric ulcers, 30 years ago. His most recent colonoscopy was 5 or [address] Garcia, patient reports no abnormal findings. Other history includes history of colitis, diverticular disease, polyps, reported in patients medical records. Patient denies any abdominal discomfort, no bleeding is painless. Patient denied any hematemesis, denied any chest pain or shortness of breath. Patient was initially admitted to medical surgical floor, was being followed by GI service, and was being treated conservatively. Admission hemoglobin was 12.4. He has been passing clotty stools the whole time patient has been inpatient. The morning of 08/17/2018, patient had gotten up to the commode, has a large red clotty bowel movement, estimated to be at around 250 ML, and extremely weak, lightheaded and dizzy, briefly lost consciousness. ANA NICOLE was called, patient was placed in bed, after which he came to. Vital signs remained relatively stable, although blood pressure was down to 98/66, to see his blood pressure was 145/67, he was not tachycardic, and remained in sinus rhythm with a rate of 60 BPM. This morning his hemoglobin just prior to his syncopal episode was 7.7, O2 sat hemoglobin was sent. He was transferred to the intensive care, he received IV fluid bolus of 0.9 normal saline 1 L, he is on PPI therapy. He is resting comfortably in bed, he is pale, but responds appropriately, denies any chest pain, denies any shortness of breath or abdominal pain. Review of Systems All systems: negative Constitutional: Denies chills, Denies fever Eyes: denies blurred vision, denies pain Ears, nose, mouth and throat: Denies headache, Denies sore throat Cardiovascular: Denies chest pain, Denies shortness of breath Respiratory: Denies cough Gastrointestinal: Reports hematochezia, Denies abdominal pain, Denies diarrhea, Denies nausea, Denies vomiting Musculoskeletal: Denies myalgias Integumentary: Denies pruritus, Denies rash Neurological: Denies numbness, Denies weakness Psychiatric: Denies anxiety, Denies depression Endocrine: Denies fatigue, Denies weight change Past Medical History Past Medical History: Cancer, GERD/Reflux Additional Past Medical History / Comment(s): 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 pt stated he uses eye drops to prevent glaucoma.pt stated he had an pne vaccine 3 or 4 years ago,health technical writer unable to verify date at time of this admit. History of Any Multi-Drug Resistant Organisms: None Reported Past Surgical History: Cholecystectomy, Heart Catheterization With Stent Additional Past Surgical History / Comment(s): laser eye tx and injections rt eye. colonoscopy, past injections amanda rotator cuffs Past Anesthesia/Blood Transfusion Reactions: No Reported Reaction Date of Last Stent Placement:: May 16, 2018 Past Psychological History: No Psychological Hx Reported Smoking Status: Former smoker Past Alcohol Use History: Occasional Additional Past Alcohol Use History / Comment(s): started smoking age 20(1950) and quit( 1953) smoked 1/2 ppd Past Drug Use History: None Reported - Past Family History Father Family Medical History: CVA/TIA Mother Family Medical History: Cancer Additional Family Medical History / Comment(s): liver cancer Medications and Allergies Home Medications Medication Instructions Recorded Confirmed Type Aspirin EC [Ecotrin Low Dose] 81 mg PO HS 05/14/18 08/13/18 History Mesalamine [Asacol Hd] 800 mg PO BID 05/14/18 08/13/18 History Vit C/E/Zn/Coppr/Lutein/Zeaxan 1 cap PO BID 05/14/18 08/13/18 History [Preservision Areds 2 Softgel] Atorvastatin [Lipitor] 20 mg PO DAILY 08/13/18 08/13/18 History Cholecalciferol (Vitamin D3) 2,000 unit PO HS 08/13/18 08/13/18 History [Vitamin D3] Cyanocobalamin (Vitamin B-12) 2,000 mcg PO DAILY 08/13/18 08/13/18 History [Vitamin B-12] Folic Acid 0.8 mg PO DAILY 08/13/18 08/13/18 History Magnesium Chloride [Slow-Mag] 64 mg PO HS 08/13/18 08/13/18 History Metoprolol Tartrate [Lopressor] 25 mg PO DAILY 08/13/18 08/13/18 History Omeprazole 20 mg PO BID PRN 08/13/18 08/13/18 History Allergies Allergy/AdvReac Type Severity Reaction Status Date / Time Sulfa (Sulfonamide Allergy Rash/Hives Verified 08/13/18 07:10 Antibiotics) Physical Exam Vitals: Vital Signs Temp Pulse Pulse Resp BP Pulse Ox 08/17/18 08:30 60 14 99 08/17/18 08:29 97.7 F 59 L 14 99 08/17/18 05:00 98.1 F 66 16 98/66 98 08/17/18 03:46 98.7 F 72 145/67 98 08/16/18 21:00 97.5 F L 60 16 123/58 98 08/16/18 11:57 97.1 F L 62 16 115/56 98 Intake and Output 08/16/18 08/17/18 08/17/18 22:59 06:59 14:59 Intake Total 600 800 Balance 600 800 Intake: Intake, IV Titration 200 Amount Sodium Chloride 0.9% 1, 200 000 ml @ 50 mls/hr IV . Q20H [facility] Rx#:[id number] Oral 600 600 Other: Voiding Method Toilet Toilet Urinal # Voids 1 # Bowel Movements 4 GENERAL EXAM: Alert, pleasant, 88-year-old white male, resting in bed, appears pale, but comfortable in no apparent distress HEAD: Normocephalic/atraumatic. EYES: Normal reaction of pupils, equal size. Conjunctiva pink, sclera white. NOSE: Clear with pink turbinates. THROAT: No erythema or exudates. NECK: No masses, no JVD, no thyroid enlargement, no adenopathy. CHEST: No chest wall deformity. Symmetrical expansion. LUNGS: Equal air entry with no crackles, wheeze, rhonchi or dullness. CVS: Regular rate and rhythm, normal S1 and S2, no gallops, no murmurs, no rubs ABDOMEN: Soft, nontender. No hepatosplenomegaly, normal bowel sounds, no guarding or rigidity. EXTREMITIES: No clubbing, no edema, no cyanosis, 2+ pulses and upper and lower extremities. MUSCULOSKELETAL: Muscle strength and tone normal. SPINE: No scoliosis or deformity SKIN: No rashes CENTRAL NERVOUS SYSTEM: Alert and oriented -3. No focal deficits, tone is normal in all 4 extremities. PSYCHIATRIC: Alert and oriented -3. Appropriate affect. Intact judgment and insight. Results - Laboratory Findings CBC and BMP: 08/17/18 07:24 08/15/18 07:03 Abnormal lab findings: Abnormal Labs 08/13/18 08/13/18 08/13/18 05:01 05:01 05:01 RBC 4.02 L Hgb 12.4 L Hct 38.2 L Chloride 109 H BUN 21 H Glucose 110 H POC Glucose (mg/dL) Calcium CK-MB (CK-2) 2.8 H 08/13/18 08/14/18 08/15/18 12:36 06:40 07:03 RBC 3.61 L 3.15 L 2.91 L Hgb 11.3 L 9.9 L 9.3 L Hct 35.1 L 30.6 L 28.2 L Chloride BUN Glucose POC Glucose (mg/dL) Calcium CK-MB (CK-2) 08/15/18 08/16/18 08/17/18 07:03 08:40 03:21 RBC 2.70 L 2.66 L Hgb 8.5 L 8.5 L Hct 25.9 L 25.7 L Chloride 109 H BUN Glucose 107 H POC Glucose (mg/dL) Calcium 8.3 L CK-MB (CK-2) 08/17/18 08/17/18 08/17/18 07:24 08:07 08:30 RBC 2.38 L Hgb 7.7 L Hct 23.1 L Chloride BUN Glucose POC Glucose (mg/dL) 173 H 155 H Calcium CK-MB (CK-2) - Diagnostic Findings Chest x-ray: report reviewed, image reviewed Assessment and Plan Plan: Assessment: #1. Hypovolemic shock, related to acute GI blood loss anemia secondary to GI bleeding #2. Syncopal episode related to the above #3. History of colitis, diverticular disease #4. Coronary artery disease, with recent stenting of the distal left circumflex coronary artery with [employer]ience drug-eluting stent April 2018. Patient was on aspirin and Plavix, currently just on aspirin 81 mg #5. GERD #6. Previous history of bleeding gastric ulcers years ago #7. Hypertension, hypercholesterolemia #8. Remote history of smoking Plan: Continue serial H&H's, continue close hemodynamic monitoring, patient did receive a liter of 0.9 normal saline bolus, he is on PPI therapy. GI service is following. This morning his hemoglobin was 7.7, may consider transfusion for symptomatic anemia. Continue to closely follow I performed a history & physical examination of the patient and discussed their management with my nurse practitioner, Dilma Chavarria. I reviewed the nurse practitioner's note and agree with the documented findings and plan of care. Lung sounds are clear. The findings and the impression was discussed with the patient. I attest to the documentation by the nurse practitioner. Time with Patient: Greater than 30
--- NOTE | 2018-08-17 10:23 | P.PN ---
Subjective Progress Note Date: 08/16/18 Principal diagnosis: Blood per rectum Patient seen lying in bed. Denying any abdominal pain. He reports a brown nonbloody bowel movement a day. Objective - Vital Signs Vital signs: Vital Signs Temp 97.5 F L 08/16/18 21:00 Pulse 60 08/16/18 21:00 Resp 16 08/16/18 21:00 BP 123/58 08/16/18 21:00 Pulse Ox 98 08/16/18 21:00 Intake & Output 08/16/18 08/16/18 08/17/18 06:59 18:59 06:59 Intake Total 830 Balance 830 Weight 97.522 kg Intake: Oral 830 Other: Voiding Method Toilet Toilet # Voids 2 2 - Exam On physical examination, patient appears comfortable in no apparent distress. HEAD: Normocephalic, atraumatic. EYES: No scleral icterus. No conjunctival injection. MOUTH: No lesions, tongue midline. NECK: Trachea midline, no gross abnormalities. CHEST: Clear to auscultation with no wheezing or rhonchi appreciated. HEART: S1 and S2 appreciated. ABDOMEN: Soft, obese. Bowel sounds are positive. No organomegaly. No guarding or rigidity. EXTREMITIES: No pedal edema. SKIN: No rashes, no jaundice. NEUROLOGIC: Alert and oriented. No focal deficits. - Labs CBC & Chem 7: 08/17/18 07:24 08/15/18 07:03 Labs: Abnormal Lab Results - Last 24 Hours (Table) 08/16/18 Range/Units 08:40 RBC 2.70 L (4.30-5.90) m/uL Hgb 8.5 L (13.0-17.5) gm/dL Hct 25.9 L (39.0-53.0) % Assessment and Plan (1) BRBPR (bright red blood per rectum) Narrative/Plan: Patient presenting with complaints of painless bright red blood per rectum. Differential includes diverticular disease, hemorrhoids, colonic AVMs or other etiology. He reported a brown bloody bowel movement this morning. Current Visit: Yes Status: Acute Code(s): K62.5 - HEMORRHAGE OF ANUS AND RECTUM SNOMED Code(s): 00304013 (2) Anemia, blood loss Current Visit: Yes Status: Acute Code(s): D50.0 - IRON DEFICIENCY ANEMIA SECONDARY TO BLOOD LOSS (CHRONIC) SNOMED Code(s): 395006151 Plan: Supportive care Monitor hemoglobin and transfuse as needed Advance diet as tolerated Okay for discharge if no further bleeding tomorrow and hemoglobin is stable, we' ll consider endoscopic evaluation if signs or symptoms of bleeding recur or hemoglobin falls Thank you for allowing us to participate in the care of this patient
[2018-08-17 10:32] LABS: Albumin 2.6 g/dL (3.5-5.0); Calcium 7.5 mg/dL (8.4-10.2); Magnesium 1.9 mg/dL (1.6-2.3); Phosphorus 3.7 mg/dL (2.5-4.5); Total Bilirubin 0.5 mg/dL (0.2-1.3); Total Protein 4.7 g/dL (6.3-8.2)
--- NOTE | 2018-08-17 11:24 | P.PN ---
Subjective Progress Note Date: 08/17/18 Principal diagnosis: Lower GI bleeding This 88-year-old gentleman was admitted to the hospital with chief bleeding. The patient initially had some about 3 bowel movements blood loss. He did settle down in fact last evening the patient overnight called to check on him told me that he had a normal color stool. 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 Later on the patient was on the commode he lost about 1250 mL of blood and he passed out while he was in the commode. Patient's symptoms are suggestive of vasovagal/hypotension. No arrhythmia noted. Patient in view of this transfer to the ICU. Patient examined in the ICU. He is awake alert oriented denies any abdominal pain nausea vomiting. Patient's vital signs are fairly stable right now he is not tachycardic his blood pressure is 109 systolic. Receiving IV fluids. He appears pale his repeat hemoglobin this am7.7 this is a drop of about 5 gram .last 1 week. Patient will be transfused at least 1 and a packed red cell possible 2 Patient had a drug-eluting stent placed in April 2018. In view of this aspirin 81 mg is continued. His Plavix has been discontinued.. REVIEW OF SYSTEMS: Neuro: Denies any headache had some dizziness when he was sitting earlier syncopal episode Psych: Denies anxiety depression feels oriented. Cardiac: Denies chest pain and angina palpitations. Respiratory: Denies shortness of breath cough. GI: Denies any nausea vomiting abdominal pain. Rectal bleeding : Denies dysuria hematuria. Extremities: Denies pain. No edema. Skin: Intact. Constitutional: No fever, chills. Objective - Vital Signs Vital signs: Vital Signs Temp 97.7 F 08/17/18 08:29 Pulse 67 08/17/18 10:00 Resp 12 08/17/18 10:00 BP 114/52 08/17/18 10:00 Pulse Ox 100 08/17/18 10:00 Intake & Output 08/16/18 08/17/18 08/17/18 18:59 06:59 18:59 Intake Total 1400 1150 Balance 1400 1150 Intake: Intake, IV Titration 200 1150 Amount Sodium Chloride 0.9% 1, 200 150 000 ml @ 100 mls/hr IV . Q10H [facility] Rx#:[id number] Sodium Chloride 0.9% 1, 1000 000 ml @ 999 mls/hr IV . Q1H1M [facility] Rx#:[id number] Oral 1200 Other: Voiding Method Toilet Toilet Urinal # Voids 2 1 # Bowel Movements 4 PHYSICAL EXAMINATION: Cooperative, at present in no acute distress. HEENT: Neck supple. No JVD conjunctiva pale. Chest: Clear to auscultation Cardiac: Normal S1-S2 no gallops systolic murmur 2/6 left sternal border. Abdomen: Soft bowel sounds present. Extremities: No edema no tenderness Neurologically: Awake, alert, oriented with well-coordinated movements. - Labs CBC & Chem 7: 08/17/18 07:24 08/17/18 09:51 Labs: Abnormal Lab Results - Last 24 Hours (Table) 08/17/18 08/17/18 08/17/18 Range/Units 03:21 07:24 08:07 RBC 2.66 L 2.38 L (4.30-5.90) m/uL Hgb 8.5 L 7.7 L (13.0-17.5) gm/dL Hct 25.7 L 23.1 L (39.0-53.0) % Chloride (98-107) mmol/L Glucose (74-99) mg/dL POC Glucose (mg/dL) 173 H (75-99) mg/dL Calcium (8.4-10.2) mg/dL Alkaline Phosphatase (38-126) U/L Total Protein (6.3-8.2) g/dL Albumin (3.5-5.0) g/dL Crossmatch 08/17/18 08/17/18 08/17/18 Range/Units 08:30 09:45 09:51 RBC (4.30-5.90) m/uL Hgb (13.0-17.5) gm/dL Hct (39.0-53.0) % Chloride 110 H (98-107) mmol/L Glucose 116 H (74-99) mg/dL POC Glucose (mg/dL) 155 H (75-99) mg/dL Calcium 7.5 L (8.4-10.2) mg/dL Alkaline Phosphatase 33 L (38-126) U/L Total Protein 4.7 L (6.3-8.2) g/dL Albumin 2.6 L (3.5-5.0) g/dL Crossmatch See Detail Assessment and Plan Assessment: ASSESSMENT: 1. Acute lower GI bleeding. 2. Anemia secondary to acute blood loss. 3. Postural syncope possible vasovagal. 4. Coronary artery disease. 5. Drug-eluting stent placement 3 months ago. 6. History of chronic colitis which has been stable. PLAN: Continue present medical regimen. Patient's been transferred to the ICU. Transfuse 1 unit of packed red cell possible two ,repeat serial CBC.. Care tomorrow. Patient's condition discussed with the patient
[2018-08-17] MEDS: METOPROLOL TARTRATE 25 MG TAB PO SCH (11:42)
[2018-08-17] MEDS: BALSALAZIDE DISODIUM 750 MG CAPSULE PO SCH ×3 (11:42→21:24)
[2018-08-17] MEDS: TIMOLOL 0.5% OPHTH DROPS 5 ML BTL BOTH EYES SCH ×2 (11:43→21:25)
[2018-08-17] MEDS: DORZOLAMIDE HCL 2% DROPS 10 ML BTL BOTH EYES SCH ×2 (11:43→21:24)
[2018-08-17] MEDS ORDERED: PEG 3350-NA SULF,BICARB,CL/KCL 4,000 ML BOTTLE PO ONE (16:00)
[2018-08-17 18:04] LABS: Basophils % (A) 0 %; Eosinophils # (A) 0.3 k/uL (0-0.7); Eosinophils % (A) 3 %; HCT 26.2 % (39.0-53.0); HGB 8.7 gm/dL (13.0-17.5); Lymphocytes # (A) 1.7 k/uL (1.0-4.8); Lymphocytes % (A) 20 %; MCHC 33.2 g/dL (31.0-37.0); MCV 96.4 fL (80.0-100.0); Mean Platelet Volume 7.1; Monocytes # (A) 0.6 k/uL (0-1.0); Monocytes % (A) 6 %; Neutrophils # (A) 6.1 k/uL (1.3-7.7); Neutrophils % (A) 69 %; Platelet Count 163 k/uL (150-450); RBC 2.72 m/uL (4.30-5.90); RDW 14.6 % (11.5-15.5); WBC 8.8 k/uL (3.8-10.6)
[2018-08-17] MEDS: ATORVASTATIN 80 MG TAB PO SCH (21:23)
[2018-08-17] MEDS: ASPIRIN 81 MG PO SCH (21:23)
[2018-08-17] MEDS: LATANOPROST 0.005% OPHTH DROPS 2.5 ML BTL BOTH EYES SCH (21:24)
--- NOTE | 2018-08-17 23:09 | P.PN ---
Subjective Progress Note Date: 08/17/18 Principal diagnosis: Blood per rectum Transferred to the ICU after a large bloody bowel movement and with signs and symptoms of symptomatic anemia. Reports by patient and his daughter are of at least 3-4 bloody bowel movements overnight. No nausea or vomiting. Objective - Vital Signs Vital signs: Vital Signs Temp 97.9 F 08/17/18 20:00 Pulse 75 08/17/18 22:00 Resp 15 08/17/18 22:00 BP 120/65 08/17/18 22:00 Pulse Ox 97 08/17/18 22:00 Intake & Output 08/17/18 08/17/18 08/18/18 06:59 18:59 06:59 Intake Total 1400 4585 400 Output Total 650 550 Balance 1400 3935 -150 Intake: IV 300 Sodium Chloride 0.9% 1, 300 000 ml @ 100 mls/hr IV . Q10H [facility] Rx#:[id number] Intake, IV Titration 200 1950 100 Amount Sodium Chloride 0.9% 1, 200 950 100 000 ml @ 100 mls/hr IV . Q10H [facility] Rx#:[id number] Sodium Chloride 0.9% 1, 1000 000 ml @ 999 mls/hr IV . Q1H1M [facility] Rx#:[id number] Oral 1200 2000 Blood Product 635 Rc Pheresis 2 As3 Unit 310 [id number] Output: Urine 650 450 Stool 100 Other: Voiding Method Toilet Urinal # Voids 1 # Bowel Movements 4 - Exam On physical examination, patient appears comfortable in no apparent distress. HEAD: Normocephalic, atraumatic. EYES: No scleral icterus. No conjunctival injection. MOUTH: No lesions, tongue midline. NECK: Trachea midline, no gross abnormalities. CHEST: Clear to auscultation with no wheezing or rhonchi appreciated. HEART: S1 and S2 appreciated. ABDOMEN: Soft, obese. Bowel sounds are positive. No organomegaly. No guarding or rigidity. EXTREMITIES: No pedal edema. SKIN: No rashes, no jaundice. NEUROLOGIC: Alert and oriented. No focal deficits. - Labs CBC & Chem 7: 08/17/18 17:39 08/17/18 09:51 Labs: Abnormal Lab Results - Last 24 Hours (Table) 08/17/18 08/17/18 08/17/18 Range/Units 03:21 07:24 08:07 RBC 2.66 L 2.38 L (4.30-5.90) m/uL Hgb 8.5 L 7.7 L (13.0-17.5) gm/dL Hct 25.7 L 23.1 L (39.0-53.0) % Chloride (98-107) mmol/L Glucose (74-99) mg/dL POC Glucose (mg/dL) 173 H (75-99) mg/dL Calcium (8.4-10.2) mg/dL Alkaline Phosphatase (38-126) U/L Total Protein (6.3-8.2) g/dL Albumin (3.5-5.0) g/dL Crossmatch 08/17/18 08/17/18 08/17/18 Range/Units 08:30 09:45 09:51 RBC (4.30-5.90) m/uL Hgb (13.0-17.5) gm/dL Hct (39.0-53.0) % Chloride 110 H (98-107) mmol/L Glucose 116 H (74-99) mg/dL POC Glucose (mg/dL) 155 H (75-99) mg/dL Calcium 7.5 L (8.4-10.2) mg/dL Alkaline Phosphatase 33 L (38-126) U/L Total Protein 4.7 L (6.3-8.2) g/dL Albumin 2.6 L (3.5-5.0) g/dL Crossmatch See Detail 08/17/18 Range/Units 17:39 RBC 2.72 L (4.30-5.90) m/uL Hgb 8.7 L (13.0-17.5) gm/dL Hct 26.2 L (39.0-53.0) % Chloride (98-107) mmol/L Glucose (74-99) mg/dL POC Glucose (mg/dL) (75-99) mg/dL Calcium (8.4-10.2) mg/dL Alkaline Phosphatase (38-126) U/L Total Protein (6.3-8.2) g/dL Albumin (3.5-5.0) g/dL Crossmatch Assessment and Plan (1) BRBPR (bright red blood per rectum) Narrative/Plan: Patient presenting with complaints of painless bright red blood per rectum. Differential includes diverticular disease, hemorrhoids, colonic AVMs or other etiology. Multiple bloody bowel movements overnight Current Visit: Yes Status: Acute Code(s): K62.5 - HEMORRHAGE OF ANUS AND RECTUM SNOMED Code(s): 89199722 (2) Anemia, blood loss Current Visit: Yes Status: Acute Code(s): D50.0 - IRON DEFICIENCY ANEMIA SECONDARY TO BLOOD LOSS (CHRONIC) SNOMED Code(s): 154300402 Plan: Supportive care Monitor hemoglobin and transfuse as needed Clear liquid diet and nothing by mouth after midnight Plan for EGD and colonoscopy in the morning given persistent episodes of blood per rectum Thank you for allowing us to participate in the care of this patient
[2018-08-18 04:40] LABS: Basophils % (A) 0 %; Eosinophils # (A) 0.3 k/uL (0-0.7); Eosinophils % (A) 4 %; HCT 22.7 % (39.0-53.0); HGB 7.6 gm/dL (13.0-17.5); Lymphocytes # (A) 1.6 k/uL (1.0-4.8); Lymphocytes % (A) 20 %; MCH 31.7 pg (25.0-35.0); MCHC 33.5 g/dL (31.0-37.0); MCV 94.5 fL (80.0-100.0); Monocytes # (A) 0.5 k/uL (0-1.0); Monocytes % (A) 6 %; Neutrophils # (A) 5.5 k/uL (1.3-7.7); Neutrophils % (A) 70 %; Platelet Count 154 k/uL (150-450); RDW 14.9 % (11.5-15.5); WBC 7.9 k/uL (3.8-10.6)
[2018-08-18 04:54] LABS: Calcium 7.7 mg/dL (8.4-10.2); Phosphorus 3.1 mg/dL (2.5-4.5); Potassium 3.8 mmol/L (3.5-5.1)
[2018-08-18] MEDS ORDERED: Potassium Replacement Protocol 1 EACH MISC MISCELLANE PRN (05:51)
[2018-08-18] MEDS ORDERED: POTASSIUM CHLORIDE ER 20 MEQ TAB.ER PO SCH (06:00)
[2018-08-18] MEDS: SODIUM CHLORIDE 0.9% 1,000 ML IV SCH ×3 (06:13→20:57)
[2018-08-18] MEDS ORDERED: IV FLUID CONTINUATION 1,000 ML IV ONE (09:48)
[2018-08-18] MEDS ORDERED: PROPOFOL 10 MG/ML 20 ML VIAL IV ONE (09:48)
[2018-08-18] MEDS ORDERED: ePHEDrine SULFATE/0.9% NACL/PF 50 MG/5 ML SYRINGE IV ONE (09:48)
[2018-08-18] MEDS ORDERED: LIDOCAINE 1% INJ 10MG/ML (20 ML MDV) ONE (09:48)
[2018-08-18] MEDS: PANTOPRAZOLE 40 MG/10 ML VIAL IVP SCH (11:06)
[2018-08-18] MEDS: BALSALAZIDE DISODIUM 750 MG CAPSULE PO SCH ×3 (11:06→21:00)
[2018-08-18] MEDS: METOPROLOL TARTRATE 25 MG TAB PO SCH (11:06)
[2018-08-18] MEDS: TIMOLOL 0.5% OPHTH DROPS 5 ML BTL BOTH EYES SCH ×2 (11:07→21:00)
[2018-08-18] MEDS: DORZOLAMIDE HCL 2% DROPS 10 ML BTL BOTH EYES SCH ×2 (11:07→21:00)
--- NOTE | 2018-08-18 11:27 | PN ---
PROGRESS NOTE This is an 88-year-old male that we saw yesterday in consultation here in the ICU. He was brought over for hypovolemic shock secondary to GI bleeding. The patient apparently had a syncopal episode as well. The patient is scheduled for an EGD and colonoscopy this morning at 9:30 am. Since he has been here, he has received 1 unit of PRBCs. He is not receiving any supplemental oxygen and his IV is 0.9 at 100 mL an hour. The patient this morning had a hemoglobin of 7.6. He does have a history of CAD with recent stenting of the distal left circumflex coronary artery with a drug-eluting stent in April of this year. The patient was on aspirin and Plavix, but is currently just on baby aspirin. The patient does have a history of GERD, previous history of bleeding ulcers, hypertension, hyperlipidemia, and remote tobacco history. Currently comfortable. Not complaining of any pain or discomfort. No additional bleeding at this point. PHYSICAL EXAMINATION: Current vital signs are reviewed. His temperature is 98, heart rate 67, respiratory rate 15, blood pressure 127/88, mean 101, room air saturation 98%. Appears in no acute distress. A little pale. HEENT examination is grossly unremarkable. Mucous membranes are moist. No oral lesions. Not receiving any supplemental oxygen. Neck supple. Full range of motion. No adenopathy or thyromegaly. Cardiovascular examination reveals a regular rhythm and rate. S1, S2 normal. No S3, S4, or murmur. Lungs are relatively clear. A few scattered mild rhonchi. No wheezes or crackles. Breath sounds equal bilaterally. Abdomen is soft. Bowel sounds are heard. No masses or tenderness. Extremities are intact. No cyanosis, clubbing, or edema. Skin without rash. Neurologic examination is brief but nonfocal. LABORATORY DATA: Today includes a white count of 7.9, hemoglobin 7.6, hematocrit 22.7, platelet count a 154,000. Sodium and potassium are normal. Chloride 110, CO2 24, anion gap is 4, BUN and creatinine were 8 and 0.98. Calcium is 7.7. Albumin is 2.6. There is no chest x-ray to report. MEDICATIONS: Reviewed. He is on baby aspirin, Lipitor, Colazal eyedrops, metoprolol, Narcan, Protonix, GoLYTELY lavage prep, potassium replacement protocol, and his IV fluids of saline at 100 mL an hour. ASSESSMENT: 1. Hypovolemic shock secondary to acute gastrointestinal bleed, with anemia, requiring 1 unit of PRBCs. 2. Syncopal episode related to the hypovolemia and hypotension, resolved. 3. History of colitis and diverticular disease. 4. Recent stenting of the distal left circumflex coronary artery with a drug-eluting stent, in April 2018. 5. History of gastroesophageal reflux disease. 6. Previous history of bleeding gastric ulcer. 7. Hypertension. 8. Hyperlipidemia. 9. Remote history of tobacco use. PLAN: Today's hemoglobin is 7.6. The patient is receiving IV fluids. Not requiring any supplemental oxygen. His overall prognosis remains guarded. He will come back to the ICU after his procedure. He is being prepped for an EGD and colonoscopy this morning. Prognosis is guarded. MMODL / IJN: [id number] /
--- NOTE | 2018-08-18 11:48 | P.PCN ---
Date of Procedure: 08/18/18 Description of Procedure: Brief History: Patient is a 88-year-old gentleman past medical history of coronary artery disease for which he received a stent approximately 2 months ago, non specific colitis treated with Balsalazide and diverticulosis and colonic polyps who presented with complaints of blood per rectum. Patient states he was woken from his sleep with an urge to have a bowel movement and noted that his stool was bright red blood. After presentation to the hospital he continued to have bleeding per rectum and hemoglobin fell. It appeared the patient's symptoms had resolved, however hemoglobin continue to trend down and the patient was kept for observation. He subsequently had 3-4 bloody bowel movements and a syncopal episode and was brought to the emergency department. EGD and colonoscopy were ordered for further evaluation of the patient's symptoms Procedure performed: Esophagogastroduodenoscopy Colonoscopy with biopsy Estimated blood loss: Minimal. Preoperative diagnosis: Hematochezia, anemia of acute blood loss Anesthesia: MAC Procedure: After informed consent was obtained from the patient was brought into the endoscopy unit and IV sedation was administered by anesthesia under continuous monitoring. Initially upper endoscopy was done. The Olympus GF 190 video endoscope was inserted inserted into the mouth and esophagus intubated without any difficulty and was gradually advanced into the stomach and duodenum and carefully examined. The bulb and second part of the duodenum appeared normal. The scope was then withdrawn into the stomach adequately insufflated with air and upon careful examination the antrum and body, cardia and fundus appeared normal. The scope was then withdrawn into the esophagus. A small hiatal hernia was noted on retroflexion in the stomach. The GE junction was located at 37 cm to the incisors. It appeared regular with no erythema erosions or ulcerations. Rest of the esophagus appeared normal. Patient tolerated the procedure well. At this time the patient continued to remain sedation. Initial digital rectal examination was normal. Olympus CF 190 video colonoscope was then inserted into the rectum and gradually advanced to the cecum without any difficulty. Careful examination was performed as the scope was gradually being withdrawn. The prep was good. The cecum, ascending colon, transverse colon, descending colon, sigmoid colon and rectum appeared normal. A small amount of mild erythema was noted on the ileocecal valve and biopsies were taken. A moderate amount of small and large mouth diverticula were noted throughout the entire colon. Retroflexion was performed in the rectum and no lesions were noted, with nonbleeding internal hemorrhoids noted. No old blood or active bleeding in the entire examined colon. Patient tolerated the procedure well. Impression: 1. No blood, or active bleeding noted on EGD or colonoscopy. 2. Small hiatal hernia on EGD. 3. Medrano colonic diverticulosis, mild erythema of the ileocecal valve which was biopsied, and nonbleeding internal hemorrhoids on colonoscopy. Recommendations: Findings of this examination were discussed with the patient as well as his 2 daughters. Okay for full liquid diet. Continue to monitor hemoglobin and transfuse as needed. Consideration for further evaluation with either a capsule endoscopy or CT angiography if patient has further bleeding. Given his questionable history of colitis he may benefit from being sent to a referral center for definitive CT angiography with coiling by interventional radiology if he has further bleeding instead of capsule endoscopy which is only diagnostic.
--- NOTE | 2018-08-18 11:51 | PN ---
PROGRESS NOTE ADDENDUM: Critical care time 31 minutes. GRACIELA / SYDNEYN: [id number] /
--- NOTE | 2018-08-18 12:01 | P.PN ---
Subjective Progress Note Date: 08/18/18 Principal diagnosis: Lower GI bleeding This 88-year-old gentleman was admitted to the hospital with lower GI bleeding a week ago. He had basically subsided bleeding and then had a recurrence. The recurrence is quite profuse. He needed a unit of blood transfusion. His hemoglobin is stable at 7.6. No symptoms now. He had a syncopal episode while on the commode chair with the significant bleeding. Patient has been on aspirin and continued on aspirin. He was on Plavix which has been held. He had a cardiac stent 3 months ago. Today the patient underwent an upper and lower endoscopy. EGD showed a hiatal hernia. No evidence of any source of bleeding there. Had a colonoscopy which revealed pandiverticulosis with no clear evidence of bleeding. Some inflammation of the ileocecal valve for which a biopsy was taken. Patient yesterday during the prep had no bleeding. Patient feels fairly well. Denies any headaches dizziness however has not been up out of bed yet. Denies chest pain shortness of breath or palpitations. No other bleeding any site. REVIEW OF SYSTEMS: Neuro: Denies any headaches dizziness. Psych: Denies anxiety depression feels oriented. Cardiac: Denies chest pain and angina palpitations. Respiratory: Denies shortness of breath cough. GI: Denies nausea vomiting or abdominal pain. No rectal bleeding. : Denies dysuria hematuria. Extremities: Denies pain. No edema. Skin: Intact. Constitutional: No fever, chills. Objective - Vital Signs Vital signs: Vital Signs Temp 98.0 F 08/18/18 09:00 Pulse 79 08/18/18 11:00 Resp 17 08/18/18 11:00 BP 102/55 08/18/18 11:00 Pulse Ox 98 08/18/18 11:00 Intake & Output 08/17/18 08/18/18 08/18/18 18:59 06:59 18:59 Intake Total 4585 1300 800 Output Total 650 603 400 Balance 3935 697 400 Weight 95.8 kg Intake: IV 1200 800 Sodium Chloride 0.9% 1, 1200 400 000 ml @ 100 mls/hr IV . Q10H JORDYN Rx#:[id number] Intake, IV Titration 1950 100 Amount Sodium Chloride 0.9% 1, 950 100 000 ml @ 100 mls/hr IV . Q10H JORDYN Rx#:[id number] Sodium Chloride 0.9% 1, 1000 000 ml @ 999 mls/hr IV . Q1H1M ONE Rx#:[id number] Oral 2000 Blood Product 635 Rc Pheresis 2 As3 Unit 310 [id number] Output: Urine 650 600 400 Stool 3 Other: Voiding Method Urinal Urinal # Bowel Movements 1 PHYSICAL EXAMINATION: Cooperative, at present in no acute distress. HEENT: Neck supple. No JVD. Chest: Clear to auscultation Cardiac: Normal S1-S2 no gallops no murmur . Occasional PACs on monitor Abdomen: Soft bowel sounds present. Extremities: No edema no tenderness Neurologically: Awake, alert, oriented with well-coordinated movements. - Labs CBC & Chem 7: 08/18/18 04:06 08/18/18 04:06 Labs: Abnormal Lab Results - Last 24 Hours (Table) 08/17/18 08/17/18 08/18/18 Range/Units 09:45 17:39 04:06 RBC 2.72 L 2.40 L (4.30-5.90) m/uL Hgb 8.7 L 7.6 L (13.0-17.5) gm/dL Hct 26.2 L 22.7 L (39.0-53.0) % Chloride (98-107) mmol/L BUN (9-20) mg/dL Glucose (74-99) mg/dL Calcium (8.4-10.2) mg/dL Crossmatch See Detail 08/18/18 Range/Units 04:06 RBC (4.30-5.90) m/uL Hgb (13.0-17.5) gm/dL Hct (39.0-53.0) % Chloride 110 H (98-107) mmol/L BUN 8 L (9-20) mg/dL Glucose 101 H (74-99) mg/dL Calcium 7.7 L (8.4-10.2) mg/dL Crossmatch Assessment and Plan Assessment: ASSESSMENT: 1. Anemia secondary to acute blood loss. 2. Lower GI bleeding source undetermined. 3. davis diverticulosis on colonoscopy. 4. Coronary artery disease with a stent 3 months ago. 5. Syncope secondary to postural hypotension and vasovagal. PLAN: Continue present medical regimen. Patient's condition discussed with the patient and daughter. Patient will be started on full liquids. May not require any further intervention if he has no further bleeding. Monitor hemoglobin. Expect discharge home if no bleeding in 3 days.
[2018-08-18] MEDS: ASPIRIN 81 MG PO SCH (20:59)
[2018-08-18] MEDS: ATORVASTATIN 80 MG TAB PO SCH (21:00)
[2018-08-18] MEDS: LATANOPROST 0.005% OPHTH DROPS 2.5 ML BTL BOTH EYES SCH (21:00)
[2018-08-19 05:03] LABS: Basophils % (A) 0 %; Eosinophils # (A) 0.3 k/uL (0-0.7); Eosinophils % (A) 5 %; HCT 21.7 % (39.0-53.0); HGB 7.3 gm/dL (13.0-17.5); Lymphocytes # (A) 1.7 k/uL (1.0-4.8); Lymphocytes % (A) 23 %; MCH 32.3 pg (25.0-35.0); MCHC 33.6 g/dL (31.0-37.0); MCV 96.2 fL (80.0-100.0); Mean Platelet Volume 6.7; Monocytes # (A) 0.4 k/uL (0-1.0); Monocytes % (A) 6 %; Neutrophils # (A) 4.7 k/uL (1.3-7.7); Neutrophils % (A) 64 %; Platelet Count 151 k/uL (150-450); RBC 2.25 m/uL (4.30-5.90); RDW 15.8 % (11.5-15.5); WBC 7.3 k/uL (3.8-10.6)
[2018-08-19 05:27] LABS: Calcium 7.7 mg/dL (8.4-10.2); Magnesium 2.1 mg/dL (1.6-2.3); Phosphorus 3.3 mg/dL (2.5-4.5); Potassium 3.8 mmol/L (3.5-5.1)
[2018-08-19] MEDS ORDERED: POTASSIUM CHLORIDE ER 20 MEQ TAB.ER PO SCH (09:00)
[2018-08-19] MEDS: BALSALAZIDE DISODIUM 750 MG CAPSULE PO SCH ×3 (09:44→21:16)
[2018-08-19] MEDS: PANTOPRAZOLE 40 MG/10 ML VIAL IVP SCH (09:45)
[2018-08-19] MEDS: METOPROLOL TARTRATE 25 MG TAB PO SCH (09:45)
[2018-08-19] MEDS: SODIUM CHLORIDE 0.9% 1,000 ML IV SCH ×2 (09:46→13:57)
[2018-08-19] MEDS: DORZOLAMIDE HCL 2% DROPS 10 ML BTL BOTH EYES SCH ×2 (09:46→21:15)
[2018-08-19] MEDS: TIMOLOL 0.5% OPHTH DROPS 5 ML BTL BOTH EYES SCH ×2 (09:46→21:14)
--- NOTE | 2018-08-19 11:44 | P.PN ---
Subjective Progress Note Date: 08/19/18 Principal diagnosis: This is a 88-year-old white male patient of Dr. Rodriguez who came into the hospital on 08/13/2018 for evaluation of bright red blood per rectum. Patient has past medical history of coronary artery disease with recent stenting in April, and is currently on a combination of aspirin and Plavix. He has a remote history of bleeding gastric ulcers, 30 years ago. His most recent colonoscopy was 5 or [address] Garcia, patient reports no abnormal findings. Other history includes history of colitis, diverticular disease, polyps, reported in patients medical records. Patient denies any abdominal discomfort, no bleeding is painless. Patient denied any hematemesis, denied any chest pain or shortness of breath. Patient was initially admitted to medical surgical floor, was being followed by GI service, and was being treated conservatively. Admission hemoglobin was 12.4. He has been passing clotty stools the whole time patient has been inpatient. The morning of 08/17/2018, patient had gotten up to the commode, has a large red clotty bowel movement, estimated to be at around 250 ML, and extremely weak, lightheaded and dizzy, briefly lost consciousness. ANA NICOLE was called, patient was placed in bed, after which he came to. Vital signs remained relatively stable, although blood pressure was down to 98/66, to see his blood pressure was 145/67, he was not tachycardic, and remained in sinus rhythm with a rate of 60 BPM. This morning his hemoglobin just prior to his syncopal episode was 7.7, O2 sat hemoglobin was sent. He was transferred to the intensive care, he received IV fluid bolus of 0.9 normal saline 1 L, he is on PPI therapy. He is resting comfortably in bed, he is pale, but responds appropriately, denies any chest pain, denies any shortness of breath or abdominal pain. Patient was seen today on 08/19/2018, patient seems to be doing relatively well , his hemoglobin is 7.3, his colonoscopy report was reviewed, patient is hemodynamically stable, no evidence of active GI bleeding at present. Patient required a total of 1 unit of packed RBCs since admission. His EGD showed hiatal hernia. Colonoscopy showed davis diverticulosis with no clear evidence of bleeding. There was some inflammation of the ileocecal valve, biopsy is pending. Overall the patient is doing well, and I believe at this point we could potentially consider transfer the patient to a regular medical floor if agreeable with the different consultants on the case. Hemoglobin yesterday was 7.6 it is 7.3 today. Intellect lites are normal renal profile is normal. Objective - Vital Signs Vital signs: Vital Signs Temp 97.7 F 08/19/18 11:22 Pulse 57 L 08/19/18 11:22 Resp 16 08/19/18 11:22 BP 110/66 08/19/18 11:22 Pulse Ox 98 08/19/18 11:22 Intake & Output 08/18/18 08/19/18 08/19/18 18:59 06:59 18:59 Intake Total 1950 1200 500 Output Total 975 1200 801 Balance 975 0 -301 Weight 93.3 kg Intake: IV 1500 1200 500 Sodium Chloride 0.9% 1, 1100 1200 500 000 ml @ 100 mls/hr IV . Q10H JORDYN Rx#:[id number] Oral 450 Output: Urine 975 1200 800 Stool 1 Other: Voiding Method Urinal # Voids 1 - Exam Physical Exam: Revealed an 88-year-old white male in no distress. Head: Atraumatic, normocephalic. HEENT:[Neck is supple.] [No neck masses.] [No thyromegaly.] [No JVD.] Chest: [Clear throughout, no crackles, no rhonchi, no wheezes.] Cardiac Exam: [Normal S1 and S2, no S3 gallop, no murmur.] Abdomen: [Soft, nontender, no megaly, no rebound, no guarding, normal bowel sounds.] Extremities: [No clubbing, no edema, no cyanosis.] Neurological Exam: [No focal neurologic deficit.] - Labs CBC & Chem 7: 08/19/18 04:21 08/19/18 04:21 Labs: Abnormal Lab Results - Last 24 Hours (Table) 08/17/18 08/19/18 08/19/18 Range/Units 09:45 04:21 04:21 RBC 2.25 L (4.30-5.90) m/uL Hgb 7.3 L (13.0-17.5) gm/dL Hct 21.7 L (39.0-53.0) % RDW 15.8 H (11.5-15.5) % Chloride 109 H (98-107) mmol/L BUN 7 L (9-20) mg/dL Calcium 7.7 L (8.4-10.2) mg/dL Crossmatch See Detail Assessment and Plan Assessment: Impression: 1 anemia secondary to acute GI bleeding, most likely diverticular in nature unless proven otherwise. 2 and diverticulosis noted on colonoscopy but no active bleeding 3 coronary artery disease and previous stent placement about 3 months ago. Plavix remains presently on hold. 4 syncope secondary to hypovolemia and GI bleeding 5 hypovolemic shock secondary to GI bleeding 6 hypertension 7 hyperlipidemia 8 remote smoking history 9 history of GERD, EGD was nondiagnostic. Recommendation: Continue present supportive care measures, patient is presently on room air, not requiring any further blood transfusions, hemoglobin is 7.3, no active bleeding is noted clinically, hence will consider transferring the patient out of the ICU to a regular medical floor and will continue to monitor for the next 24 hours. Continue treatment as per GI analysis consultant on the case. Time with Patient: Less than 30
--- NOTE | 2018-08-19 12:49 | P.PN ---
Subjective Progress Note Date: 08/19/18 Principal diagnosis: Lower GI bleeding This 88-year-old gentleman was admitted to the hospital with lower GI bleeding. Initially was on the medical floor. Patient's bleeding had basically stopped and then suddenly recurred. Patient was admitted to the ICU because of an associated syncopal episode. The patient had an upper and lower endoscopy which did not reveal any site of bleeding. There was mild inflammation of the ileocecal valve for which biopsies taken pending results. Had multiple colonic diverticuli with no evidence of any active bleeding. Patient subsequent to that has remained fairly stable hemodynamically. He did have a bowel movement today which and no blood. Patient's feeling well he does have some weakness when he was around but denies any associated symptoms of chest pain shortness of breath or dizziness. Patient's IV fluids be discontinued patient hemoglobin today is 7.3. Repeat in the morning if stable patient could be discharged. Patient's continued on aspirin 81 mg daily due to recent cardiac stent. Patient will be given Iron iv 1 dose today and one tomorrow to help build up his blood back faster. REVIEW OF SYSTEMS: Neuro: Denies any headaches dizziness. Psych: Denies anxiety depression feels oriented. Cardiac: Denies chest pain and angina palpitations. Respiratory: Denies shortness of breath cough. GI: Denies nausea vomiting or abdominal pain. No diarrhea or constipation, no bowel movement yet. : Denies dysuria hematuria. Extremities: Denies pain. No edema. Skin: Intact. Constitutional: No fever, chills. Objective - Vital Signs Vital signs: Vital Signs Temp 97.7 F 08/19/18 11:22 Pulse 57 L 08/19/18 11:22 Resp 16 08/19/18 11:22 BP 110/66 08/19/18 11:22 Pulse Ox 98 08/19/18 11:22 Intake & Output 08/18/18 08/19/18 08/19/18 18:59 06:59 18:59 Intake Total 1950 1200 500 Output Total 975 1200 802 Balance 975 0 -302 Weight 93.3 kg Intake: IV 1500 1200 500 Sodium Chloride 0.9% 1, 1100 1200 500 000 ml @ 100 mls/hr IV . Q10H JORDYN Rx#:[id number] Oral 450 Output: Urine 975 1200 800 Stool 2 Other: Voiding Method Urinal Toilet Urinal # Voids 1 # Bowel Movements 1 PHYSICAL EXAMINATION: Cooperative, at present in no acute distress. HEENT: Neck supple. No JVD. Chest: Clear to auscultation Cardiac: Normal S1-S2 no gallops systolic murmur2/6 at apex . Abdomen: Soft bowel sounds present. Extremities: No edema no tenderness Neurologically: Awake, alert, oriented with well-coordinated movements. - Labs CBC & Chem 7: 08/19/18 04:21 08/19/18 04:21 Labs: Abnormal Lab Results - Last 24 Hours (Table) 08/17/18 08/19/18 08/19/18 Range/Units 09:45 04:21 04:21 RBC 2.25 L (4.30-5.90) m/uL Hgb 7.3 L (13.0-17.5) gm/dL Hct 21.7 L (39.0-53.0) % RDW 15.8 H (11.5-15.5) % Chloride 109 H (98-107) mmol/L BUN 7 L (9-20) mg/dL Calcium 7.7 L (8.4-10.2) mg/dL Crossmatch See Detail Assessment and Plan Assessment: ASSESSMENT: 1. Anemia secondary to acute blood loss. 2. Lower GI bleeding source undetermined. 3. davis diverticulosis on colonoscopy. 4. Coronary artery disease with a stent 3 months ago. PLAN: Continue present medical regimen. Patient's condition discussed with the patient and daughter. Patient will be started on low residue regular diet, discontinue IV fluids. We'll give 2 doses of Venofer. May not require any further intervention if he has no further bleeding. Monitor hemoglobin. Expect discharge home if no bleeding tomorrow
[2018-08-19] MEDS ORDERED: SODIUM FERRIC GLUCONAT-SUCROSE 125 MG in SODIUM CHLORIDE 0.9% 100 ML IVPB ONE (13:00)
--- NOTE | 2018-08-19 18:01 | P.PN ---
Subjective Progress Note Date: 08/19/18 Principal diagnosis: Blood per rectum Patient seen sitting bedside. No abdominal pain. Tolerating diet. No further reports of blood per rectum. Objective - Vital Signs Vital signs: Vital Signs Temp 98.2 F 08/19/18 13:00 Pulse 60 08/19/18 13:00 Resp 12 08/19/18 13:00 BP 118/75 08/19/18 13:00 Pulse Ox 97 08/19/18 13:00 Intake & Output 08/18/18 08/19/18 08/19/18 18:59 06:59 18:59 Intake Total 1950 1200 500 Output Total 975 1200 802 Balance 975 0 -302 Weight 93.3 kg Intake: IV 1500 1200 500 Sodium Chloride 0.9% 1, 1100 1200 500 000 ml @ 100 mls/hr IV . Q10H JORDYN Rx#:[id number] Oral 450 Output: Urine 975 1200 800 Stool 2 Other: Voiding Method Urinal Toilet Urinal # Voids 1 # Bowel Movements 1 - Exam On physical examination, patient appears comfortable in no apparent distress. HEAD: Normocephalic, atraumatic. EYES: No scleral icterus. No conjunctival injection. MOUTH: No lesions, tongue midline. NECK: Trachea midline, no gross abnormalities. CHEST: Clear to auscultation with no wheezing or rhonchi appreciated. HEART: S1 and S2 appreciated. ABDOMEN: Soft, obese. Bowel sounds are positive. No organomegaly. No guarding or rigidity. EXTREMITIES: No pedal edema. SKIN: No rashes, no jaundice. NEUROLOGIC: Alert and oriented. No focal deficits. - Labs CBC & Chem 7: 08/19/18 04:21 08/19/18 04:21 Labs: Abnormal Lab Results - Last 24 Hours (Table) 08/17/18 08/19/18 08/19/18 Range/Units 09:45 04:21 04:21 RBC 2.25 L (4.30-5.90) m/uL Hgb 7.3 L (13.0-17.5) gm/dL Hct 21.7 L (39.0-53.0) % RDW 15.8 H (11.5-15.5) % Chloride 109 H (98-107) mmol/L BUN 7 L (9-20) mg/dL Calcium 7.7 L (8.4-10.2) mg/dL Crossmatch See Detail Assessment and Plan (1) BRBPR (bright red blood per rectum) Narrative/Plan: Patient presenting with complaints of painless bright red blood per rectum. Differential includes diverticular disease, hemorrhoids, colonic AVMs or other etiology. He is status post EGD and colonoscopy done in evaluation of continued bleeding from rectum, with small hiatal hernia noted on EGD and mild erythema of the IC valve, and diverticulosis on colonoscopy with no evidence of active GI bleeding. Current Visit: Yes Status: Acute Code(s): K62.5 - HEMORRHAGE OF ANUS AND RECTUM SNOMED Code(s): 54151699 (2) Anemia, blood loss Current Visit: Yes Status: Acute Code(s): D50.0 - IRON DEFICIENCY ANEMIA SECONDARY TO BLOOD LOSS (CHRONIC) SNOMED Code(s): 970819848 Plan: Supportive care Monitor hemoglobin and transfuse as needed Diet as tolerated Okay to restart anticoagulation prior to discharge if necessary given subacute placement of cardiac stent Continue to monitor for signs or symptoms of GI bleeding Thank you for allowing us to participate in the care of this patient
[2018-08-19] MEDS: LATANOPROST 0.005% OPHTH DROPS 2.5 ML BTL BOTH EYES SCH (21:15)
[2018-08-19] MEDS: ATORVASTATIN 80 MG TAB PO SCH (21:15)
[2018-08-19] MEDS: ASPIRIN 81 MG PO SCH (21:15)
[2018-08-20] MEDS: SODIUM CHLORIDE 0.9% 1,000 ML IV SCH (03:08)
[2018-08-20 08:15] LABS: HCT 21.5 % (39.0-53.0); HGB 7.2 gm/dL (13.0-17.5); MCH 32.6 pg (25.0-35.0); MCHC 33.7 g/dL (31.0-37.0); MCV 96.5 fL (80.0-100.0); Macrocytosis Slight; Mean Platelet Volume 7.1; Platelet Count 148 k/uL (150-450); RBC 2.22 m/uL (4.30-5.90); RDW 15.7 % (11.5-15.5); WBC 9.5 k/uL (3.8-10.6)
[2018-08-20] MEDS: METOPROLOL TARTRATE 25 MG TAB PO SCH (09:06)
[2018-08-20] MEDS: PANTOPRAZOLE 40 MG/10 ML VIAL IVP SCH (09:15)
[2018-08-20] MEDS: TIMOLOL 0.5% OPHTH DROPS 5 ML BTL BOTH EYES SCH ×2 (09:16→21:07)
[2018-08-20] MEDS: SODIUM FERRIC GLUCONAT-SUCROSE 125 MG in SODIUM CHLORIDE 0.9% 100 ML IVPB SCH (09:16)
[2018-08-20] MEDS: BALSALAZIDE DISODIUM 750 MG CAPSULE PO SCH ×3 (09:16→21:06)
[2018-08-20] MEDS: DORZOLAMIDE HCL 2% DROPS 10 ML BTL BOTH EYES SCH ×2 (09:17→21:07)
--- NOTE | 2018-08-20 12:23 | P.PN ---
Subjective Progress Note Date: 08/20/18 Principal diagnosis: Lower GI bleeding This 88-year-old gentleman was admitted to the hospital because of lower GI bleeding. The patient had hemoglobin of 12.6 at the time of admission. He needed one unit of packed red cells and if this has stabilized at about 7.3 - 7.2. Patient does feel weak. He did have a bowel movement which I did inspect and there was no blood. The patient says during the night he had heartburn throughout the night. He did not ask for any help. Patient had an EKG done this morning reveals no acute changes. He has had a history of coronary artery disease with a stent placed in April. He has continued on aspirin throughout this hospital stay his Plavix has been on hold. We will resume the Plavix. The family has a relative who is a urologist. He suggested to the family that he not use Plavix. I reviewed with the family that this is the standard of using aspirin and Plavix for a year. We can get a second opinion from the methods engineer regarding this. But we will resume the Plavix if the methods engineer concurs. I did discuss with her GI physician who feels comfortable with the patient to resume Plavix. REVIEW OF SYSTEMS: Neuro: Denies any headaches dizziness. Psych: Denies anxiety depression feels oriented. Cardiac: Denies chest pain and angina palpitations. Respiratory: Denies shortness of breath cough. GI: Denies nausea vomiting or abdominal pain. No diarrhea or constipation, bowel movement with no blood : Denies dysuria hematuria. Extremities: Denies pain. No edema. Skin: Intact. Constitutional: No fever, chills. Objective - Vital Signs Vital signs: Vital Signs Temp 98.0 F 08/20/18 09:02 Pulse 75 08/20/18 09:02 Resp 18 08/20/18 09:02 BP 118/68 08/20/18 09:02 Pulse Ox 98 08/20/18 09:02 Intake & Output 08/19/18 08/20/18 08/20/18 18:59 06:59 18:59 Intake Total 500 Output Total 802 700 Balance -302 -700 Intake: IV 500 Sodium Chloride 0.9% 1, 500 000 ml @ 100 mls/hr IV . Q10H [facility] Rx#:[id number] Output: Urine 800 700 Stool 2 Other: Voiding Method Toilet Toilet Toilet Urinal # Voids 1 1 # Bowel Movements 1 1 PHYSICAL EXAMINATION: Cooperative, at present in no acute distress patient is weak walking to the bathroom and back. HEENT: Neck supple. No JVD. Chest: Clear to auscultation percussion. Cardiac: Normal S1-S2 no gallops no murmur . Abdomen: Soft bowel sounds present. Extremities: No edema no tenderness Neurologically: Awake, alert, oriented with well-coordinated movements. - Labs CBC & Chem 7: 08/20/18 07:47 08/19/18 04:21 Labs: Abnormal Lab Results - Last 24 Hours (Table) 08/20/18 Range/Units 07:47 RBC 2.22 L (4.30-5.90) m/uL Hgb 7.2 L (13.0-17.5) gm/dL Hct 21.5 L (39.0-53.0) % RDW 15.7 H (11.5-15.5) % Plt Count 148 L (150-450) k/uL Assessment and Plan Assessment: ASSESSMENT: 1. Anemia secondary to acute blood loss. 2. Lower GI bleeding source undetermined. 3. davis diverticulosis on colonoscopy. 4. Coronary artery disease with a stent 3 months ago. PLAN: Continue present medical regimen. Patient's condition discussed with the patient . Patient will be started on low residue regular diet, discontinue IV fluids. We'll give 2 doses of Venofer. May not require any further intervention if he has no further bleeding. Monitor hemoglobin. Met with the family which includes a son and a daughter and had a discussion regarding patient's status. We will ask cardiology's opinion regarding Plavix Which I believe should be started. Recheck CBC in the morning. Family prefers patient go to nursing facility for rehab as patient lives alone. We will work on that
--- NOTE | 2018-08-20 14:04 | P.CRDCN ---
History of Present Illness History of present illness: This is Dr. 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 No history of syncope prior to this admission PLAN: TSH level May go home from a cardiac standpoint but he must. Dual antiplatelet therapy. On statins status to continue Follow-up with Dr. Mckenna HPI Patient admitted with significant GI bleeding. No bleeding ulcers. Diverticular bleeding most likely ROS: No fever chills or rigors, no cough, phlegm or expectoration, no nausea, vomiting or diarrhea, no hematuria, dysuria, no musculoskeletal complaints, no strokes or seizures, no skin lesions. 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 pt stated he uses eye drops to prevent glaucoma.pt stated he had an pne vaccine 3 or 4 years ago,health science writer unable to verify date at time of this admit. History of Any Multi-Drug Resistant Organisms: None Reported Past Surgical History: Cholecystectomy, Heart Catheterization With Stent Additional Past Surgical History / Comment(s): laser eye tx and injections rt eye. colonoscopy, past injections amanda rotator cuffs Past Anesthesia/Blood Transfusion Reactions: No Reported Reaction Date of Last Stent Placement:: May 16, 2018 Past Psychological History: No Psychological Hx Reported Smoking Status: Former smoker Past Alcohol Use History: Occasional Additional Past Alcohol Use History / Comment(s): started smoking age 20(1950) and quit( 1953) smoked 1/2 ppd Past Drug Use History: None Reported - Past Family History Father Family Medical History: CVA/TIA Mother Family Medical History: Cancer Additional Family Medical History / Comment(s): liver cancer Medications and Allergies Home Medications Medication Instructions Recorded Confirmed Type Aspirin EC [Ecotrin Low Dose] 81 mg PO HS 05/14/18 08/13/18 History Mesalamine [Asacol Hd] 800 mg PO BID 05/14/18 08/13/18 History Vit C/E/Zn/Coppr/Lutein/Zeaxan 1 cap PO BID 05/14/18 08/13/18 History [Preservision Areds 2 Softgel] Atorvastatin [Lipitor] 20 mg PO DAILY 08/13/18 08/13/18 History Cholecalciferol (Vitamin D3) 2,000 unit PO HS 08/13/18 08/13/18 History [Vitamin D3] Cyanocobalamin (Vitamin B-12) 2,000 mcg PO DAILY 08/13/18 08/13/18 History [Vitamin B-12] Folic Acid 0.8 mg PO DAILY 08/13/18 08/13/18 History Magnesium Chloride [Slow-Mag] 64 mg PO HS 08/13/18 08/13/18 History Metoprolol Tartrate [Lopressor] 25 mg PO DAILY 08/13/18 08/13/18 History Omeprazole 20 mg PO BID PRN 08/13/18 08/13/18 History Allergies Allergy/AdvReac Type Severity Reaction Status Date / Time Sulfa (Sulfonamide Allergy Rash/Hives Verified 08/13/18 07:10 Antibiotics) Physical Exam Vitals: Vital Signs Temp Pulse Resp BP BP Pulse Ox 08/20/18 09:02 98.0 F 75 18 118/68 98 08/20/18 09:00 93/53 08/20/18 00:29 98.4 F 67 15 106/54 98 08/19/18 19:23 97.5 F L 64 18 112/62 99 Intake and Output 08/19/18 08/20/18 08/20/18 22:59 06:59 14:59 Output Total 700 Balance -700 Output: Urine 700 Other: Voiding Method Toilet Toilet # Voids 1 1 # Bowel Movements 1 1 Results 08/20/18 07:47 08/19/18 04:21 CBC 08/20/18 Range/Units 07:47 WBC 9.5 (3.8-10.6) k/uL RBC 2.22 L (4.30-5.90) m/uL Hgb 7.2 L (13.0-17.5) gm/dL Hct 21.5 L (39.0-53.0) % Plt Count 148 L (150-450) k/uL Current Medications Generic Name Dose Route Start Last Admin Trade Name Freq PRN Reason Stop Dose Admin Aspirin 81 mg 08/13/18 21:00 08/19/18 21:15 Aspirin PO 81 mg HS [facility] Administration Atorvastatin Calcium 80 mg 08/13/18 21:00 08/19/18 21:15 Lipitor PO 80 mg HS [facility] Administration Balsalazide 2,250 mg 08/13/18 09:00 08/20/18 09:16 Colazal PO 2,250 mg TID JORDYN Administration Dorzolamide HCl 1 drops 08/15/18 21:00 08/19/18 21:15 Trusopt BOTH EYES Not Given BID [facility] Ferric Sodium Gluconate 125 mg 110 mls @ 100 mls/hr 08/20/18 09:00 08/20/18 09:16 / Sodium Chloride IVPB 100 mls/hr DAILY J[facility] Administration Latanoprost 1 drops 08/15/18 21:00 08/19/18 21:15 Xalatan 0.005% BOTH EYES 1 drops HS JORDYN Administration Metoprolol Tartrate 25 mg 08/13/18 09:00 08/20/18 09:06 Lopressor PO Not Given DAILY [facility] Miscellaneous Information 1 each 08/18/18 05:51 Potassium Per Protocol MISCELLANE DAILY PRN Per Protocol Protocol Naloxone HCl 0.2 mg 08/13/18 06:05 Narcan IV Q2M PRN Opioid Reversal Naloxone HCl 0.2 mg 08/17/18 08:46 Narcan IV Q2M PRN Opioid Reversal Pantoprazole Sodium 40 mg 08/20/18 17:30 Protonix PO AC-BID J[facility] Timolol Maleate 1 drops 08/15/18 21:00 08/19/18 21:14 Timoptic BOTH EYES Not Given BID JORDYN Intake and Output 08/19/18 08/20/18 08/20/18 22:59 06:59 14:59 Output Total 700 Balance -700 Output: Urine 700 Other: Voiding Method Toilet Toilet # Voids 1 1 # Bowel Movements 1 1 08/20/18 07:47 08/19/18 04:21
[2018-08-20] MEDS: PANTOPRAZOLE 40 MG TABLET PO SCH (16:19)
--- NOTE | 2018-08-20 18:44 | P.PN ---
Subjective Progress Note Date: 08/20/18 Principal diagnosis: Blood per rectum Tolerating diet with no abdominal pain reported. Bowel movement today with no blood seen. Objective - Vital Signs Vital signs: Vital Signs Temp 98.4 F 08/20/18 13:00 Pulse 65 08/20/18 13:00 Resp 16 08/20/18 13:00 BP 104/59 08/20/18 13:00 Pulse Ox 95 08/20/18 13:00 Intake & Output 08/19/18 08/20/18 08/20/18 18:59 06:59 18:59 Intake Total 500 200 Output Total 802 700 1 Balance -302 -700 199 Intake: IV 500 200 Sodium Chloride 0.9% 1, 500 200 000 ml @ 100 mls/hr IV . Q10H [facility] Rx#:[id number] Output: Urine 800 700 Stool 2 1 Other: Voiding Method Toilet Toilet Toilet Urinal # Voids 1 1 1 # Bowel Movements 1 1 - Exam On physical examination, patient appears comfortable in no apparent distress. HEAD: Normocephalic, atraumatic. EYES: No scleral icterus. No conjunctival injection. MOUTH: No lesions, tongue midline. NECK: Trachea midline, no gross abnormalities. CHEST: Clear to auscultation with no wheezing or rhonchi appreciated. HEART: S1 and S2 appreciated. ABDOMEN: Soft, obese. Bowel sounds are positive. No organomegaly. No guarding or rigidity. EXTREMITIES: No pedal edema. SKIN: No rashes, no jaundice. NEUROLOGIC: Alert and oriented. No focal deficits. - Labs CBC & Chem 7: 08/20/18 07:47 08/19/18 04:21 Labs: Abnormal Lab Results - Last 24 Hours (Table) 08/20/18 Range/Units 07:47 RBC 2.22 L (4.30-5.90) m/uL Hgb 7.2 L (13.0-17.5) gm/dL Hct 21.5 L (39.0-53.0) % RDW 15.7 H (11.5-15.5) % Plt Count 148 L (150-450) k/uL Assessment and Plan (1) BRBPR (bright red blood per rectum) Narrative/Plan: Patient presenting with complaints of painless bright red blood per rectum. Differential includes diverticular disease, hemorrhoids, colonic AVMs or other etiology. He is status post EGD and colonoscopy done in evaluation of continued bleeding from rectum, with small hiatal hernia noted on EGD and mild erythema of the IC valve, and diverticulosis on colonoscopy with no evidence of active GI bleeding. Current Visit: Yes Status: Acute Code(s): K62.5 - HEMORRHAGE OF ANUS AND RECTUM SNOMED Code(s): 61564609 (2) Anemia, blood loss Current Visit: Yes Status: Acute Code(s): D50.0 - IRON DEFICIENCY ANEMIA SECONDARY TO BLOOD LOSS (CHRONIC) SNOMED Code(s): 513703770 Plan: Supportive care Monitor hemoglobin and transfuse as needed Diet as tolerated Okay to restart anticoagulation prior to discharge if necessary given subacute placement of cardiac stent Continue to monitor for signs or symptoms of GI bleeding Thank you for allowing us to participate in the care of this patient
[2018-08-20] MEDS: LATANOPROST 0.005% OPHTH DROPS 2.5 ML BTL BOTH EYES SCH (21:06)
[2018-08-20] MEDS: ATORVASTATIN 80 MG TAB PO SCH (21:07)
[2018-08-20] MEDS: ASPIRIN 81 MG PO SCH (21:07)
[2018-08-21 08:17] LABS: Anisocytosis Slight; HCT 21.9 % (39.0-53.0); HGB 7.2 gm/dL (13.0-17.5); MCH 32.1 pg (25.0-35.0); MCV 97.4 fL (80.0-100.0); Macrocytosis Slight; Platelet Count 155 k/uL (150-450); RBC 2.24 m/uL (4.30-5.90); RDW 16.8 % (11.5-15.5); Reticulocyte % 7.5 % (0.5-2.0); WBC 8.2 k/uL (3.8-10.6)
[2018-08-21] MEDS: CLOPIDOGREL 75 MG TAB PO SCH (09:10)
[2018-08-21] MEDS: BALSALAZIDE DISODIUM 750 MG CAPSULE PO SCH ×3 (09:11→20:11)
[2018-08-21] MEDS: METOPROLOL TARTRATE 25 MG TAB PO SCH (09:11)
[2018-08-21] MEDS: PANTOPRAZOLE 40 MG TABLET PO SCH ×2 (09:11→17:16)
[2018-08-21] MEDS: TIMOLOL 0.5% OPHTH DROPS 5 ML BTL BOTH EYES SCH ×2 (09:18→20:11)
[2018-08-21] MEDS: SODIUM FERRIC GLUCONAT-SUCROSE 125 MG in SODIUM CHLORIDE 0.9% 100 ML IVPB SCH (09:19)
[2018-08-21] MEDS: DORZOLAMIDE HCL 2% DROPS 10 ML BTL BOTH EYES SCH ×2 (09:19→20:11)
--- NOTE | 2018-08-21 09:25 | P.PN ---
Subjective Progress Note Date: 08/21/18 Principal diagnosis: Anemia GI bleed Admitted with acute rectal bleeding anemia status post EGD colonoscopy. No bleeding 24 hours. Feels well. Denies abdominal pain. Hemoglobin 7.2 stable today. Receiving IV iron. Discharge findings/rehab in process. Objective - Vital Signs Vital signs: Vital Signs Temp 98.2 F 08/21/18 00:20 Pulse 72 08/21/18 00:20 Resp 15 08/21/18 00:45 BP 107/61 08/21/18 00:20 Pulse Ox 99 08/21/18 00:20 Intake & Output 08/20/18 08/21/18 08/21/18 18:59 06:59 18:59 Intake Total 200 480 Output Total 1 300 Balance 199 -300 480 Intake: IV 200 Sodium Chloride 0.9% 1, 200 000 ml @ 100 mls/hr IV . Q10H [facility] Rx#:[id number] Oral 480 Output: Urine 300 Stool 1 Other: Voiding Method Toilet Toilet # Voids 1 1 2 # Bowel Movements 1 - Exam General appearance: The patient is alert, oriented, in no acute distress. HET: Head is normocephalic and atraumatic. Pupils are equal and reactive. Oropharynx is clear without lesions. Neck: Supple without lymphadenopathy. Trachea midline. Heart: S1 S2. Regular rate and rhythm. Lungs: No crackles or wheezes are heard. Abdomen: Soft, nontender, nondistended with bowel sounds. No peritoneal signs. No palpable organomegaly or masses. Extremities: Normal skin color and turgor. No cyanosis, rash, ulceration, clubbing, or edema. Radial and pedal pulses are 2/4 bilaterally. Neurological: No focal deficits. Strength and sensation are grossly intact. - Labs CBC & Chem 7: 08/21/18 07:34 08/19/18 04:21 Labs: Abnormal Lab Results - Last 24 Hours (Table) 08/21/18 Range/Units 07:34 RBC 2.24 L (4.30-5.90) m/uL Hgb 7.2 L (13.0-17.5) gm/dL Hct 21.9 L (39.0-53.0) % RDW 16.8 H (11.5-15.5) % Retic Count 7.5 H (0.5-2.0) % Assessment and Plan (1) BRBPR (bright red blood per rectum) Current Visit: Yes Status: Acute Code(s): K62.5 - HEMORRHAGE OF ANUS AND RECTUM SNOMED Code(s): 33569840 (2) Anemia, blood loss Current Visit: Yes Status: Acute Code(s): D50.0 - IRON DEFICIENCY ANEMIA SECONDARY TO BLOOD LOSS (CHRONIC) SNOMED Code(s): 001340227 Plan: 1. Hemoglobin stable. Discharge per medicine. Assessment and plan a care discussed with Dr. Farmer.
[2018-08-21 14:39] VITALS: BMI 31.2
[2018-08-21] MEDS: LATANOPROST 0.005% OPHTH DROPS 2.5 ML BTL BOTH EYES SCH (20:10)
[2018-08-21] MEDS: ATORVASTATIN 80 MG TAB PO SCH (20:11)
[2018-08-21] MEDS: ASPIRIN 81 MG PO SCH (20:12)
--- NOTE | 2018-08-21 21:51 | PN ---
PROGRESS NOTE CHIEF COMPLAINT: Re-evaluation. HISTORY OF PRESENT ILLNESS: This gentleman was admitted to the hospital with lower GI bleeding. The patient's bleeding has stopped. He has underlying history of coronary artery disease with a stent placed 3 months ago. It was a drug-eluting stent. The patient's aspirin has been continued throughout this ordeal. The patient has been placed back on Plavix. He feels better today. Denies any headaches, dizziness. Denies chest pain, shortness of breath, heartburn. REVIEW OF SYSTEMS: NEURO: Denies any headaches, dizziness. PSYCH: No anxiety, depression. CARDIAC: No chest pain, angina, palpitations. RESPIRATORY: No shortness of breath, cough, hemoptysis. GI: No nausea, vomiting, abdominal pain, diarrhea. No blood in the stool. : No symptoms of dysuria or hematuria. EXTREMITIES: Denies pain, edema. CONSTITUTIONAL: No fever or chills. Does complain of generalized weakness. PHYSICAL EXAMINATION: Pleasant gentleman in no distress. Vital signs recorded last at midnight showed temperature 98.2, pulse 72, respirations 15, blood pressure 107/61, pulse ox 99% on room air. HEENT: Normocephalic. NECK: No JVD. CHEST: Clear to auscultation and percussion. CARDIAC: Normal S1, S2 with no gallop. Systolic murmur 2/6, left sternal border apex area. ABDOMEN: Soft. Bowel sounds present. Extremities reveal no edema. No tenderness. Neurologically awake, alert, oriented with well-coordinated movements. LABORATORY ASSESSMENT: CBC reveals white count 8.2, hemoglobin 7.2, platelets 155. Reticulocyte count up to 7.5. ASSESSMENT: 1. Anemia secondary to acute blood loss. 2. Lower gastrointestinal bleeding. 3. Coronary artery disease, stable. PLAN: The patient is stable. Continue present medical regimen. Patient's condition was discussed with the patient. Prognosis guarded. He is awaiting possible transfer to rehab. MMODL / IJN: [id number] /
[2018-08-22 07:55] VITALS: BP 103/60; PULSE 72; RESP 16; TEMP 98.1
[2018-08-22] MEDS: METOPROLOL TARTRATE 25 MG TAB PO SCH (09:47)
[2018-08-22] MEDS: BALSALAZIDE DISODIUM 750 MG CAPSULE PO SCH (09:47)
[2018-08-22] MEDS: CLOPIDOGREL 75 MG TAB PO SCH (09:47)
[2018-08-22] MEDS: PANTOPRAZOLE 40 MG TABLET PO SCH (09:47)
[2018-08-22] MEDS: TIMOLOL 0.5% OPHTH DROPS 5 ML BTL BOTH EYES SCH (09:48)
--- NOTE | 2018-08-22 12:10 | P.DS ---
Providers Date of admission: 08/14/18 08:11 Attending physician: Levon Rodriguez Consults: 08/20/18 12:23 Consult Physician Routine Consulting Provider: Manuel Resee Consult Reason/Comments: 2nd opinon re plavix Do you want consulting provider notified?: Yes 08/13/18 06:05 Consult Physician Urgent Consulting Provider: Radha Jessica Consult Reason/Comments: low GIB Do you want consulting provider notified?: Yes 08/17/18 08:16 Consult Physician Routine Consulting Provider: Sarthak Martin Consult Reason/Comments: ICU management Do you want consulting provider notified?: Already Contacted Primary care physician: Levon Rodriguez Hospital Course: This 88-year-old gentleman was admitted to the hospital with lower GI bleeding. Initially bleeding was mild. He did stabilize after dropping his hemoglobin from 12.6 to about 11.9. Then he had another significant bleed with hemoglobin dropping down to 7.7. Patient was transfused 1 unit of packed red cell has had an associated syncopal episode. The patient at that time didn't require an upper and lower endoscopy which reveals no significant bleeding sites.. Multiple diverticuli and it is assumed patient had diverticular bleed. Patient hasn't had any further bleeding since the colonoscopy. He did have a biopsy of the cecal valve results pending. Patient has had a previous history of chronic colitis but there was no evidence of any active colitis. He has had a history of coronary artery disease and had a stent placed in April. The patient was continued on aspirin during this whole episode of bleeding. His Plavix have been discontinued. Since he has not bled from within 3 days patient has been resumed on Plavix and continued on aspirin. He has no symptoms of chest pain angina palpitations he feels weak and has fatigability with ambulation. He is recommended short-term rehabilitation as he lives by himself. The time of discharge his hemoglobin is stable at 7.2. He has been given 3 doses of IV iron. His reticulocyte count is up and expect him to build up his hemoglobin. He will continue on a low residue/low fiber diet for the next at least 2 weeks. Following that he will have high-fiber diet. Patient's general condition stable and condition discussed with the patient and family. Family had wanted Plavix discontinued because a family member who is a urologist suggested that. At to have cardiology involved to convince the family that there was not the case and that the patient needed to be on both aspirin and Plavix for now is on a low-dose beta sean and is on Lipitor. Patient condition stable at the time of discharge. Ileocecal biopsy report suggests normal mucosa My final diagnosis 1. Anemia secondary to acute blood loss 2. Lower GI bleeding 3. Coronary artery disease stable 4. Syncopal episode secondary to postural hypotension 5. History of recurrent colitis with no active colitis at present Plan - Discharge Summary Discharge Rx Participant: No New Discharge Prescriptions: New Atorvastatin [Lipitor] 80 mg PO HS tab Clopidogrel [Plavix] 75 mg PO DAILY tab Dorzolamide 2% [Trusopt 2%] 1 drops BOTH EYES BID ml Latanoprost Ophth [Xalatan 0.005%] 1 drops BOTH EYES HS ml Timolol 0.5% Ophth Soln [Timoptic 0.5% Ophth Soln] 1 drops BOTH EYES BID ml Clopidogrel Bisulfate [Plavix] 75 mg PO DAILY #30 tab Continue Vit C/E/Zn/Coppr/Lutein/Zeaxan [Preservision Areds 2 Softgel] 1 cap PO BID Mesalamine [Asacol Hd] 800 mg PO BID Aspirin EC [Ecotrin Low Dose] 81 mg PO HS Omeprazole 20 mg PO BID PRN PRN Reason: Indigestion Magnesium Chloride [Slow-Mag] 64 mg PO HS Cholecalciferol (Vitamin D3) [Vitamin D3] 2,000 unit PO HS Folic Acid 0.8 mg PO DAILY Cyanocobalamin (Vitamin B-12) [Vitamin B-12] 2,000 mcg PO DAILY Atorvastatin [Lipitor] 20 mg PO DAILY Metoprolol Tartrate [Lopressor] 25 mg PO DAILY Discontinued Clopidogrel [Plavix] 75 mg PO DAILY #30 tab Discharge Medication List Aspirin EC [Ecotrin Low Dose] 81 mg PO HS 05/14/18 [History] Mesalamine [Asacol Hd] 800 mg PO BID 05/14/18 [History] Vit C/E/Zn/Coppr/Lutein/Zeaxan [Preservision Areds 2 Softgel] 1 cap PO BID 05/14 [History] Atorvastatin [Lipitor] 20 mg PO DAILY 08/13/18 [History] Cholecalciferol (Vitamin D3) [Vitamin D3] 2,000 unit PO HS 08/13/18 [History] Cyanocobalamin (Vitamin B-12) [Vitamin B-12] 2,000 mcg PO DAILY 08/13/18 [ History] Folic Acid 0.8 mg PO DAILY 08/13/18 [History] Magnesium Chloride [Slow-Mag] 64 mg PO HS 08/13/18 [History] Metoprolol Tartrate [Lopressor] 25 mg PO DAILY 08/13/18 [History] Omeprazole 20 mg PO BID PRN 08/13/18 [History] Atorvastatin [Lipitor] 80 mg PO HS tab 08/22/18 [Rx] Clopidogrel Bisulfate [Plavix] 75 mg PO DAILY #30 tab 08/22/18 [Rx] Clopidogrel [Plavix] 75 mg PO DAILY tab 08/22/18 [Rx] Dorzolamide 2% [Trusopt 2%] 1 drops BOTH EYES BID ml 08/22/18 [Rx] Latanoprost Ophth [Xalatan 0.005%] 1 drops BOTH EYES HS ml 08/22/18 [Rx] Timolol 0.5% Ophth Soln [Timoptic 0.5% Ophth Soln] 1 drops BOTH EYES BID ml 11/05 [Rx] Follow up Appointment(s)/Referral(s): Levon Rodriguez MD [Primary Care Provider] - 1-2 days Patient Instructions/Handouts: Gastrointestinal Bleeding (DC), Low Fiber Diet ( DC) Discharge Disposition: HOME SELF-CARE
== END 2018-08-22 17:09 | DRG 377 ==
LOC: EC 04:36 → 3NMEDONC 06:05 → OBSVTOIN 08-14 08:11 → 2SICU 08-17 08:30 → 4SSUR 08-19 11:47
PROVIDERS: ADMIT Internal Medicine; ATTEND Internal Medicine
PROC: 30233N1 Transfusion of Nonautologous Red Blood Cells into Peripheral Vein, Percutaneous Approach (ICD-10-PCS; 2018-08-17)
PROC: 0DJ08ZZ Inspection of Upper Intestinal Tract, Via Natural or Artificial Opening Endoscopic (ICD-10-PCS; principal; 2018-08-18 09:30)
PROC: 0DBC8ZX Excision of Ileocecal Valve, Via Natural or Artificial Opening Endoscopic, Diagnostic (ICD-10-PCS; 2018-08-18 09:30)
DX: K57.31 Diverticulosis of large intestine without perforation or abscess with bleeding (principal); R57.1 Hypovolemic shock; D62 Acute posthemorrhagic anemia; E66.9 Obesity, unspecified; E78.00 Pure hypercholesterolemia, unspecified; E78.5 Hyperlipidemia, unspecified; I10 Essential (primary) hypertension; I25.10 Atherosclerotic heart disease of native coronary artery without angina pectoris; I44.0 Atrioventricular block, first degree; I95.1 Orthostatic hypotension; K21.9 Gastro-esophageal reflux disease without esophagitis; K44.9 Diaphragmatic hernia without obstruction or gangrene; K64.8 Other hemorrhoids; N40.0 Benign prostatic hyperplasia without lower urinary tract symptoms; R00.1 Bradycardia, unspecified; I69.998 Other sequelae following unspecified cerebrovascular disease; H54.40 Blindness, one eye, unspecified eye; Z79.02 Long term (current) use of antithrombotics/antiplatelets; Z79.82 Long term (current) use of aspirin; Z79.899 Other long term (current) drug therapy; Z88.2 Allergy status to sulfonamides; Z68.31 Body mass index [BMI] 31.0-31.9, adult; Z98.41 Cataract extraction status, right eye; Z96.1 Presence of intraocular lens; Z95.5 Presence of coronary angioplasty implant and graft; Z87.891 Personal history of nicotine dependence; Z87.11 Personal history of peptic ulcer disease; Z86.010 Personal history of colon polyps; Z85.828 Personal history of other malignant neoplasm of skin; Z90.49 Acquired absence of other specified parts of digestive tract; Z80.0 Family history of malignant neoplasm of digestive organs; Z83.3 Family history of diabetes mellitus; Z82.49 Family history of ischemic heart disease and other diseases of the circulatory system
CPT/HCPCS: 36415; 43239; 45380; 80048; 80053; 82550; 82553; 83605; 83735; 84100; 84484; 85025; 85027; 85045; 85730; 86850; 86900; 86901; 86920; 88305; 96360; 99285